=== PATIENT | female | born 1960 | race Caucasian/White ===

== ENCOUNTER 2019-08-20 11:54 | Inpatient (IN) | payer BC ==
--- NOTE | 2019-08-20 12:04 | PDOC ---
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 Patient also reports "feeling cold" and cough productive of yellow phlegm since yesterday. 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 Has had poor po intake today due to low appetite; only had one cup of coffee. Reports non- radiating pleuritic chest pain that she associates with coughing but no shortness of breath. Denies associated nausea, vomiting, or diaphoresis. She is a lifetime non-smoker. Sister had a stroke in her 60s. Has never felt this way before. No hemoptysis, no recent surgical history, no recent immobilization, no hormone use, no history of DVT or PE. No fevers. PCP: Dr. Tay Shearer ROS: Constitutional: no fever, +chills HEENT: no throat pain, no dysphagia Cardiovascular: +chest pain, no palpitations Respiratory: +cough, no shortness of breath Gastrointestinal: no abdominal pain, no nausea Genitourinary: no dysuria, no hematuria Musculoskeletal: no myalgia, no arthralgia Skin: no rash, no itching Neurologic: no headache, +weakness PE: General: Awake, alert, and fully oriented, in no acute distress Head: No signs of trauma Eyes: EOMI, sclera anicteric ENT: Moist mucus membranes Neck: Normal ROM, supple Lungs: Faint crackles at the bases Cardio: Regular rhythm, S1 and S2 present Abdomen: Soft, nontender Extremities: Normal range of motion, Distal pulses present SKIN: Warm, Dry, normal turgor Neurologic: Cranial nerves II through XII grossly intact. Normal speech ED Course/MDM: DDX including but not limited to anemia, metabolic derangement, ACS, PE, UTI, PNA Labs, EKG, CXR PERC is 1 for age>50 WELLS is 0 08/20/19 12:03 EKG: rate 69, QTc 405, NSR, isolated twi in avL (no prior EKGs) 08/20/19 12:39 CXR as read by radiology: "No prior imaging available for comparison. The heart is normal size. Aortic arch is calcified. There is interstitial fluid bilaterally. No significant pleural effusion can be appreciated. Bony thorax appears grossly intact. Postsurgical changes are present within the left shoulder. Impression: Pulmonary congestion as described above, correlate with clinical history." CBC WBC 23.7 K/mm3 (4.0-10.0) H 08/20/19 12:55 RBC 4.24 M/mm3 (3.60-5.2) 08/20/19 12:55 Hgb 13.1 GM/dL (10.7-15.3) 08/20/19 12:55 Hct 38.9 % (32.4-45.2) 08/20/19 12:55 MCV 91.6 fl (80-96) 08/20/19 12:55 MCH 30.8 pg (25.7-33.7) 08/20/19 12:55 MCHC 33.6 g/dl (32.0-36.0) 08/20/19 12:55 RDW 13.7 % (11.6-15.6) 08/20/19 12:55 Plt Count 259 K/MM3 (134-434) 08/20/19 12:55 MPV 8.5 fl (7.5-11.1) 08/20/19 12:55 Absolute Neuts (auto) 22.7 K/mm3 (1.5-8.0) H 08/20/19 12:55 Neutrophils % 96.0 % (42.8-82.8) H 08/20/19 12:55 Neutrophils % (Manual) 72.0 % (42.8-82.8) 08/20/19 12:55 Band Neutrophils % 23.0 % 08/20/19 12:55 Lymphocytes % 1.8 % (8-40) L 08/20/19 12:55 Lymphocytes % (Manual) 0.0 % (8-40) L 08/20/19 12:55 Monocytes % 0.8 % (3.8-10.2) L 08/20/19 12:55 Monocytes % (Manual) 0 % (3.8-10.2) L 08/20/19 12:55 Eosinophils % 1.3 % (0-4.5) 08/20/19 12:55 Eosinophils % (Manual) 2.0 % (0-4.5) 08/20/19 12:55 Basophils % 0.1 % (0-2.0) 08/20/19 12:55 Basophils % (Manual) 0.0 % (0-2.0) 08/20/19 12:55 Myelocytes % (Man) 0 % (0-2) 08/20/19 12:55 Promyelocytes % (Man) 0 % (0-2) 08/20/19 12:55 Blast Cells % (Manual) 0 % (0-0) 08/20/19 12:55 Nucleated RBC % 0 % (0-0) 08/20/19 12:55 Metamyelocytes 2 % (0-2) 08/20/19 12:55 Hypochromia 0 08/20/19 12:55 Platelet Estimate Normal 08/20/19 12:55 Polychromasia 1+ 08/20/19 12:55 Poikilocytosis 1+ 08/20/19 12:55 Anisocytosis 1+ 08/20/19 12:55 Microcytosis 1+ 08/20/19 12:55 Macrocytosis 0 08/20/19 12:55 Leukocytosis CMP Sodium 138 mmol/L (136-145) 08/20/19 12:43 Potassium 3.9 mmol/L (3.5-5.1) 08/20/19 12:43 Chloride 104 mmol/L (98-107) 08/20/19 12:43 Carbon Dioxide 26 mmol/L (21-32) 08/20/19 12:43 Anion Gap 8 MMOL/L (8-16) 08/20/19 12:43 BUN 28.2 mg/dL (7-18) H 08/20/19 12:43 Creatinine 1.2 mg/dL (0.55-1.3) 08/20/19 12:43 Est GFR (CKD-EPI)AfAm 57.29 08/20/19 12:43 Est GFR (CKD-EPI)NonAf 49.43 08/20/19 12:43 Random Glucose 191 mg/dL (74-106) H 08/20/19 12:43 Calcium 8.9 mg/dL (8.5-10.1) 08/20/19 12:43 Total Bilirubin 0.6 mg/dL (0.2-1) 08/20/19 12:43 AST 17 U/L (15-37) 08/20/19 12:43 ALT 23 U/L (13-61) 08/20/19 12:43 Alkaline Phosphatase 79 U/L (45-117) 08/20/19 12:43 Creatine Kinase 60 U/L (26-192) 08/20/19 12:43 Troponin I < 0.02 ng/ml (0.00-0.05) 08/20/19 15:45 B-Natriuretic Peptide 143.8 pg/ml (5-125) H 08/20/19 12:43 Total Protein 7.0 g/dl (6.4-8.2) 08/20/19 12:43 Albumin 3.3 g/dl (3.4-5.0) L 08/20/19 12:43 Electrolytes unremarkable Cr normal Tpn undetectable BNP mildly elevated Decision made to order CTA to further elucidate findings on CXR CTA as read by radiology: "multiplanar imaging was performed following the intravenous administration of nonionic contrast. No prior chest CT exam is available at this facility for direct comparison. There is no discrete pulmonary embolus. In comparison to an abdominal/pelvic CT study of 02/21/2018 which partially imaged lower chest interval development of small bilateral lower lobe infiltrates is noted. There is also interval development of very small right-sided and trace left-sided pleural effusions. 0.5 cm subpleural right upper lobe and 0.4 cm right upper lobe noncalcified nodules are seen ( transaxial images 24, 25). Several 0.2 cm noncalcified nodules are seen within the right middle lobe and right lower lobe. There is no definite cardiac enlargement. No pericardial effusion is seen. The main pulmonary artery diameter appears borderline measuring 2.9 cm. The trachea and central bronchi demonstrate no obvious pathology. There is no aortic aneurysm. The visualized osseous structures demonstrate no obvious acute abnormality. 2.3 cm right adrenal and 1.7 cm left adrenal adenomas are again noted. Impression: No CT evidence of pulmonary embolism. In comparison to a 2018 abdomen/pelvic CT exam interval development of small bilateral lower lobe infiltrates is noted. Note is also made of interval development of very small right-sided and trace left- sided pleural effusions. Several small right lung nodules are seen. Correlation with 3 month follow-up CT is suggested to document stability. The main pulmonary artery diameter is borderline measuring 2.9 cm. Additional evaluation for possible increased pulmonary arterial pressures may be performed. Small stable bilateral adrenal adenomas. Biochemical evaluation is suggested if not previously performed. " Michelle order for inpatient admission for pneumonia Plan for admission 08/20/19 18:[address] Hurt who accepted patient for admisison under Dr. Haley 08/20/19 19:08 Discharge - Discharge Information Problems reviewed: Yes Clinical Impression/Diagnosis: Pneumonia Qualifiers: Pneumonia type: due to unspecified organism Laterality: unspecified laterality Lung location: unspecified part of lung Qualified Code(s): J18.9 - Pneumonia, unspecified organism Condition: Guarded - Admission Yes - Follow up/Referral - Patient Discharge Instructions - Post Discharge Activity
[2019-08-20] MEDS ORDERED: ACETAMINOPHEN 325 MG TABLET (FP) PO ONE (12:27)
[2019-08-20] MEDS ORDERED: SODIUM CHLORIDE 1,000 ML IV STA (12:27)
[2019-08-20] MEDS ORDERED: ACETAMINOPHEN 325 MG TABLET (FP) ONE (12:58)
--- NOTE | 2019-08-20 13:18 | PDOC ---
Attending Attestation - Resident Resident Name: Delmis Kapoor - ED Attending Attestation I have performed the following: I have examined & evaluated the patient, The case was reviewed & discussed with the resident, I agree w/resident's findings & plan, Exceptions are as noted - HPI HPI: 08/20/19 13:11 Ms Pacheco is a 58 yo F h/o DM, HTN, HLD who presents to the ER with a complaint of feeling "weak, dizzy, pale" since this morning. Pt reported having a cough productive of yellow phlegm since yesterday. No recent travel Chest pain which is described as non-radiating pleuritic chest pain that she associates with coughing but no shortness of breath. No nausea, vomiting, diarrhea, diaphoresis. No hemoptysis, no recent surgical history, no recent immobilization, no hormone use, no history of DVT or PE. No fevers. - Physicial Exam PE: 08/20/19 13:18 General: Awake, alert, and fully oriented, in no acute distress Head: No signs of trauma Eyes: EOMI, sclera anicteric ENT: Moist mucus membranes Neck: Normal ROM, supple Lungs: Faint crackles at the bases Cardio: Regular rhythm, S1 and S2 present Abdomen: Soft, nontender Extremities: Normal range of motion, Distal pulses present SKIN: Warm, Dry, normal turgor Neurologic: Cranial nerves II through XII grossly intact. Normal speech - Medical Decision Making 08/20/19 13:21 58 yo F presenting with a complaint of weakness, non specific complaints Twelve-lead EKG was performed and reviewed by me. There is normal sinus rhythm with a normal rate of 69 bpm. The axis is normal. The intervals are normal. There are no ST or T wave abnormalities. Impression: Normal twelve-lead EKG 08/20/19 16:22 Laboratory Tests 08/20/19 08/20/19 08/20/19 12:43 12:55 12:55 WBC 23.7 H Hgb 13.1 Hct 38.9 Plt Count 259 Neutrophils % 96.0 H INR 1.03 BUN 28.2 H Creatinine 1.2 Creatine Kinase 60 Troponin I < 0.02 Urine Blood Urine Nitrite Ur Leukocyte Esterase 08/20/19 13:12 WBC Hgb Hct Plt Count Neutrophils % INR BUN Creatinine Creatine Kinase Troponin I Urine Blood Negative Urine Nitrite Negative Ur Leukocyte Esterase Negative Labs reveal Leukocytosis BANDEMIA Trop neg x 2 CXR with no obvious consolidation, but with pulmonary congestion UA nml No abdominal tenderness 08/20/19 16:[address] chest Will plan to admit 08/20/19 17:15 08/20/19 18:29 CT with bilateral infiltrates Will admit Will give Ceftriaxone and Azithromycin Clinical impression: pneumonia, initial presentation Heart Score/ECG Review - History History: Slightly suspicious - Electrocardiogram EKG: Normal - Age Age: 45-65 - Risk Factors Risk Factors Heart Score: Yes Hx Hypercholesterolemia, Yes Hx Hypertension, Yes Hx Diabetes Based on the list above the patient has:: >/=3 risk factors or Hx atherosclerotic disease - Troponin Troponin: </= normal limit - Score Heart Score - Total: 3
[2019-08-20 13:20] LABS: BASO % 0.1 % (0-2.0); EOS % 1.3 % (0-4.5); HEMATOCRIT 38.9 % (32.4-45.2); HEMOGLOBIN 13.1 GM/dL (10.7-15.3); LYMPH % 1.8 % (8-40); MCH 30.8 pg (25.7-33.7); MCHC 33.6 g/dl (32.0-36.0); MEAN CELL VOLUME 91.6 fl (80-96); MEAN PLT VOLUME 8.5 fl (7.5-11.1); MONO % 0.8 % (3.8-10.2); PLATELET COUNT 259 K/MM3 (134-434); RBC 4.24 M/mm3 (3.60-5.2); RDW 13.7 % (11.6-15.6); WHITE BLOOD COUNT 23.7 K/mm3 (4.0-10.0)
[2019-08-20 13:41] LABS: URINE APPEARANCE CLEAR; URINE BILIRUBIN NEGATIVE (NEGATIVE); URINE COLOR YELLOW; URINE GLUCOSE (UA) NEGATIVE (NEGATIVE); URINE KETONE NEGATIVE (NEGATIVE); URINE LEUK ESTERASE NEGATIVE (NEGATIVE); URINE NITRITE NEGATIVE (NEGATIVE); URINE PROTEIN NEGATIVE (NEGATIVE)
[2019-08-20 13:45] LABS: ALBUMIN 3.3 g/dl (3.4-5.0); ALK PHOS 79 U/L (45-117); ANION GAP 8 MMOL/L (8-16); BILIRUBIN,TOTAL 0.6 mg/dL (0.2-1); BLOOD UREA NITROGEN 28.2 mg/dL (7-18); CALCIUM 8.9 mg/dL (8.5-10.1); CHLORIDE 104 mmol/L (98-107); CO2 26 mmol/L (21-32); CREATININE 1.2 mg/dL (0.55-1.3); GLUCOSE,RANDOM 191 mg/dL (74-106); POTASSIUM 3.9 mmol/L (3.5-5.1); SGOT/AST 17 U/L (15-37); SGPT/ALT 23 U/L (13-61); SODIUM 138 mmol/L (136-145)
[2019-08-20 13:52] LABS: INR 1.03 (0.83-1.09); PROTHROMBIN TIME (PATIENT) 12.1 SEC (9.7-13.0)
[2019-08-20 14:29] LABS: ANISOCYTOSIS 1+; MACROCYTOSIS 0; PLATELET ESTIMATE NORMAL
[2019-08-20] MEDS ORDERED: AZITHROMYCIN 250 MG TABLET PO ONE (15:57)
[2019-08-20] MEDS ORDERED: AZITHROMYCIN 250 MG TABLET ONE (16:23)
[2019-08-20] MEDS ORDERED: CEFTRIAXONE 1,000 MG in DEXTROSE 5%-WATER - 50 ML IVPB ONE (18:25)
[2019-08-20] MEDS ORDERED: CEFTRIAXONE 1 GM/50 ML BAG ONE (18:29)
--- NOTE | 2019-08-20 19:32 | HP ---
CHIEF COMPLAINT: weakness with cough PCP: HISTORY OF PRESENT ILLNESS: 58F w/ pmh of IDDM, HTN, HLD referred to [facility] by workplace-nurse for complaint of fatigue w/a productive cough and yellow-green sputum x2d, intermittent diffuse CP. Has had associated rhinorrhea, chills, sensation that her urine feels warm. Denies history of pneumonia, hospitalization. 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 Denies having sick contacts, history of asthma, recent foreign travel, recent prolonged trips, prolonged immobility, blood clots. ER course was notable for: (1) EKG: NSR, QTc 405 (2) CXR: interstitial fluid b/l suggestive of pulmonary congestion (3) CTA chest: no PE, b/l lower lobe infiltrates, b/l pleural effusions, RML and RLL nodules, 2.3cm Right adrenal adenoma, 1.7cm Left adrenal adenoma (4) ceftriaxone + azithromycin Recent Travel: none PAST MEDICAL HISTORY: IDDM, HTN, HLD PAST SURGICAL HISTORY: Social History: Smoking: distant smoking during teenage years Alcohol: denies Drugs: denies Allergies No Known Allergies Allergy (Verified 08/20/19 12:02) HOME MEDICATIONS: REVIEW OF SYSTEMS CONSTITUTIONAL: positive chills, weakness, malaise Absent: fever, diaphoresis, loss of appetite, weight change HEENT: positive rhinorrhea, nasal congestion Absent: throat pain, throat swelling, difficulty swallowing, mouth swelling, visual changes CARDIOVASCULAR: Absent: chest pain, syncope, palpitations, irregular heart rate, lightheadedness , peripheral edema RESPIRATORY: productive cough with yellow-green sputum Absent: shortness of breath, ddyspnea with exertion, orthopnea, wheezing, stridor, hemoptysis GASTROINTESTINAL: Absent: abdominal pain, abdominal distension, nausea, vomiting, diarrhea, constipation, melena, hematochezia GENITOURINARY: "hot" temperature urine Absent: dysuria, frequency, urgency, hesitancy, hematuria, flank pain, genital pain MUSCULOSKELETAL: Absent: myalgia, arthralgia, joint swelling, back pain, neck pain SKIN: Absent: rash, itching, pallor HEMATOLOGIC/IMMUNOLOGIC: Absent: easy bleeding, easy bruising, lymphadenopathy, frequent infections NEUROLOGIC: headache Absent: focal weakness or paresthesias, dizziness, unsteady gait, seizure, mental status changes, bladder or bowel incontinence PHYSICAL EXAMINATION Vital Signs - 24 hr 08/20/19 08/20/19 12:02 18:03 Temperature 98.4 F Pulse Rate 69 Pulse Rate [ 75 Left] Respiratory 20 18 Rate Blood Pressure 109/64 Blood Pressure 120/74 [Left Arm] O2 Sat by Pulse 95 93 L Oximetry (%) GENERAL: Awake, alert, in no acute distress. HEAD: NC/AT EYES: sclera anicteric, conjunctiva. EARS, NOSE, THROAT: Ears normal, nares patent, oropharynx clear without exudates. Moist mucous membranes. NECK: Normal range of motion, supple without lymphadenopathy. LUNGS: Breath sounds equal, clear to auscultation bilaterally. No wheezes, and no crackles. No accessory muscle use. HEART: Regular rate and rhythm, normal S1 and S2 without murmur, rub or gallop. ABDOMEN: Soft, nontender, not distended, no guarding, no rebound. MUSCULOSKELETAL: Normal range of motion at all joints. UPPER EXTREMITIES: 2+ pulses, warm, well-perfused. No cyanosis. LOWER EXTREMITIES: 2+ pulses, warm, well-perfused. No calf tenderness. No peripheral edema. NEUROLOGICAL: Normal speech. PSYCHIATRIC: Cooperative. Good eye contact. SKIN: Warm, dry Laboratory Results - last 24 hr 08/20/19 08/20/19 08/20/19 12:43 12:43 12:55 WBC 23.7 H RBC 4.24 Hgb 13.1 Hct 38.9 MCV 91.6 MCH 30.8 MCHC 33.6 RDW 13.7 Plt Count 259 MPV 8.5 Absolute Neuts (auto) 22.7 H Neutrophils % 96.0 H Neutrophils % (Manual) 72.0 Band Neutrophils % 23.0 Lymphocytes % 1.8 L Lymphocytes % (Manual) 0.0 L Monocytes % 0.8 L Monocytes % (Manual) 0 L Eosinophils % 1.3 Eosinophils % (Manual) 2.0 Basophils % 0.1 Basophils % (Manual) 0.0 Myelocytes % (Man) 0 Promyelocytes % (Man) 0 Blast Cells % (Manual) 0 Nucleated RBC % 0 Metamyelocytes 2 Hypochromia 0 Platelet Estimate Normal Polychromasia 1+ Poikilocytosis 1+ Anisocytosis 1+ Microcytosis 1+ Macrocytosis 0 PT with INR INR Sodium 138 Potassium 3.9 Chloride 104 Carbon Dioxide 26 Anion Gap 8 BUN 28.2 H Creatinine 1.2 Est GFR (CKD-EPI)AfAm 57.29 Est GFR (CKD-EPI)NonAf 49.43 Random Glucose 191 H Calcium 8.9 Total Bilirubin 0.6 AST 17 ALT 23 Alkaline Phosphatase 79 Creatine Kinase 60 Troponin I < 0.02 B-Natriuretic Peptide 143.8 H Total Protein 7.0 Albumin 3.3 L Urine Color Urine Appearance Urine pH Ur Specific [place] Urine Protein Urine Glucose (UA) Urine Ketones Urine Blood Urine Nitrite Urine Bilirubin Urine Urobilinogen Ur Leukocyte Esterase 08/20/19 08/20/19 08/20/19 12:55 13:12 15:45 WBC RBC Hgb Hct MCV MCH MCHC RDW Plt Count MPV Absolute Neuts (auto) Neutrophils % Neutrophils % (Manual) Band Neutrophils % Lymphocytes % Lymphocytes % (Manual) Monocytes % Monocytes % (Manual) Eosinophils % Eosinophils % (Manual) Basophils % Basophils % (Manual) Myelocytes % (Man) Promyelocytes % (Man) Blast Cells % (Manual) Nucleated RBC % Metamyelocytes Hypochromia Platelet Estimate Polychromasia Poikilocytosis Anisocytosis Microcytosis Macrocytosis PT with INR 12.10 INR 1.03 Sodium Potassium Chloride Carbon Dioxide Anion Gap BUN Creatinine Est GFR (CKD-EPI)AfAm Est GFR (CKD-EPI)NonAf Random Glucose Calcium Total Bilirubin AST ALT Alkaline Phosphatase Creatine Kinase Troponin I < 0.02 B-Natriuretic Peptide Total Protein Albumin Urine Color Yellow Urine Appearance Clear Urine pH 6.0 Ur Specific [place] 1.017 Urine Protein Negative Urine Glucose (UA) Negative Urine Ketones Negative Urine Blood Negative Urine Nitrite Negative Urine Bilirubin Negative Urine Urobilinogen 1.0 Ur Leukocyte Esterase Negative Vital Signs Temp 98.2 F 08/20/19 19:33 Pulse 71 08/20/19 19:33 Resp 20 08/20/19 21:00 BP 137/63 08/20/19 19:33 Pulse Ox 93 L 08/20/19 18:03 Intake & Output 08/20/19 08/20/19 08/21/19 11:59 23:59 11:59 Intake Total 800 Balance 800 Weight 98.43 kg Intake: Oral 800 Other: Voiding Method Toilet Bowel Movement No Height 5 ft 4 in Body Mass Index (BMI) 37.2 Weight Measurement Method Built in [facility] Weight Measurement Method Est/Stated by Patient CXR(08/20/19): The heart is normal size. Aortic arch is calcified. There is interstitial fluid bilaterally. No significant pleural effusion can be appreciated. Bony thorax appears grossly intact. Postsurgical changes are present within the left shoulder. CTA chest: No CT evidence of pulmonary embolism. In comparison to a 2018 abdomen/pelvic CT exam interval development of small bilateral lower lobe infiltrates is noted. Note is also made of interval development of very small right-sided and trace left-sided pleural effusions. Several small right lung nodules are seen. Correlation with 3 month follow-up CT is suggested to document stability. The main pulmonary artery diameter is borderline measuring 2.9 cm. Additional evaluation for possible increased pulmonary arterial pressures may be performed. Small stable bilateral adrenal adenomas. Biochemical evaluation is suggested if not previously performed. ASSESSMENT/PLAN: 58F w/ pmh of IDDM, HTN, HLD presenting with productive cough with complaint of URI-like symptoms #Community-Acquired PNA > Pulse-Oximeter 93-95% on RA > CURB-65 ~1 > CXR(08/20/19): b/l interstitial fluid > CTA Chest(08/20/19): no PE, b/l LL infiltrates w/ trace pleural effusion. b/l adrenal adenomas > WBC 23 w/ 96% neutrophils - fu sputum cx - fu respir viral panel - fu urine legionella Ag - supplemental O2 PRN, goal >92% - ABX: ceftriaxone + azithro #?RICKY 2/2 to sepsis vs ?CKD - obtain PCP records - mIVF - trend Cr #chronic IDDM - med rec needed - BGM ACQHS + ISS #chronic HTN -- likely Essential --normotensive currently - med rec needed - monitor vitals #chronic HLD - med rec needed #b/l adrenal adenomas - monitor for now - consider outpatient w/u(eg. BGM, serum K+, cortisol, ACTH, 24h urinay free corisol, fasting serum cortisol at 0800, serum DHEAS/androstenedion/testosterone /17-hydroxyprogesterone) #FEN - low sodium/sugar diet - NS @125, until improvement of ?RICKY #DVT ppx - SQH Family Medical History Family Hx Cancer: Daughter (chest wall tumors) Family Hx Cardiac Disorders: Sister (IA) Family Hx Diabetes: Grandmother (paternal) Visit type - Emergency Visit Emergency Visit: Yes ED Registration Date: 08/20/19 Care time: The patient presented to the Emergency Department on the above date and was hospitalized for further evaluation of their emergent condition. - New Patient This patient is new to me today: Yes Date on this admission: 08/21/19 - Critical Care Critical Care patient: No ATTENDING PHYSICIAN STATEMENT I saw and evaluated the patient. I reviewed the resident's note and discussed the case with the resident. I agree with the resident's findings and plan as documented. SUBJECTIVE: OBJECTIVE: ASSESSMENT AND PLAN:
[2019-08-20] MEDS ORDERED: CEFTRIAXONE 1 GM in DEXTROSE 5%-WATER - 50 ML IVPB SCH (19:45)
--- NOTE | 2019-08-20 20:53 | PN ---
Teaching Attending Note Name of Resident: Cheng Gee ATTENDING PHYSICIAN STATEMENT I saw and evaluated the patient. I reviewed the resident's note and discussed the case with the resident. I agree with the resident's findings and plan as documented. 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 No recent travels CTA of chest was performed in ER. Denied any urinary symptoms, diarrhea. OBJECTIVE: Last Vital Signs Temp Pulse Resp BP Pulse Ox 98.2 F 71 20 137/63 93 L 08/20/19 19:33 08/20/19 19:33 08/20/19 19:33 08/20/19 19:33 08/20/19 18:03 general- nontoxic appearing heent- no sinus tenderness neck supple chest - bibasilar crackles appreciated abdomen -soft, nt, bs+ ext - no pedal edema Abnormal Lab Results 08/20/19 08/20/19 08/20/19 12:43 12:43 12:55 WBC 23.7 H Absolute Neuts (auto) 22.7 H Neutrophils % 96.0 H Lymphocytes % 1.8 L Lymphocytes % (Manual) 0.0 L Monocytes % 0.8 L Monocytes % (Manual) 0 L BUN 28.2 H Random Glucose 191 H B-Natriuretic Peptide 143.8 H Albumin 3.3 L imaging reviewed cta neg for pe, showed some trace bi- basilar infiltrates ASSESSMENT AND PLAN: #Community acquired pneumonia, leukocytosis w/ neutrophil predominance. Noted to be slightly hypoxic in ER as o2 sat on ra in low 90s. Should r/o underlying influenza. -med/surg -azithromycin -ceftriaxone -sputum culture -urine legionella ag -flu swab -blood cultures x2 -supplemental oxygen via nasal cannula #Uncontrolled DM with severe hyperglycemia. -novolog sliding scale -10 units lantus qhs -tight glucose control -diabetic diet -a1c dvt ppx- heparin sc -
[2019-08-20] MEDS ORDERED: SODIUM CHLORIDE 1,000 ML IV SCH (21:15)
[2019-08-20] MEDS: HEPARIN NA (PORCINE) 5,000 UNITS/ML 1ML VIAL SQ SCH (21:19)
[2019-08-20] MEDS: INSULIN SLIDING SCALE (NOVOLOG) 1 VIAL SQ SCH (21:19)
[2019-08-20 21:38] VITALS: BMI 37.2
[2019-08-20] MEDS: ACETAMINOPHEN 325 MG TABLET (FP) PO PRN (22:25)
[2019-08-21] MEDS: ACETAMINOPHEN 325 MG TABLET (FP) PO PRN ×3 (03:49→20:19)
[2019-08-21] MEDS ORDERED: PNEUMOC 13-VAL CONJ-DIP CRM/PF 0.5 ML DISP.SYRIN IM ONE (06:00)
[2019-08-21] MEDS: HEPARIN NA (PORCINE) 5,000 UNITS/ML 1ML VIAL SQ SCH ×3 (06:17→21:23)
[2019-08-21] MEDS: INSULIN SLIDING SCALE (NOVOLOG) 1 VIAL SQ SCH ×4 (06:20→21:23)
[2019-08-21 07:30] LABS: BLOOD UREA NITROGEN 23.8 mg/dL (7-18); CALCIUM 8.2 mg/dL (8.5-10.1); CREATININE 1.2 mg/dL (0.55-1.3); MAGNESIUM 1.7 mg/dL (1.8-2.4); PHOSPHOROUS 3.2 mg/dL (2.5-4.9); POTASSIUM 3.4 mmol/L (3.5-5.1)
[2019-08-21 07:42] LABS: BASO % 0.1 % (0-2.0); EOS % 3.2 % (0-4.5); HEMATOCRIT 31.8 % (32.4-45.2); HEMOGLOBIN 10.9 GM/dL (10.7-15.3); LYMPH % 4.8 % (8-40); MCH 31.2 pg (25.7-33.7); MCHC 34.2 g/dl (32.0-36.0); MEAN CELL VOLUME 91.3 fl (80-96); MEAN PLT VOLUME 8.8 fl (7.5-11.1); MONO % 1.4 % (3.8-10.2); NEUT % 90.5 % (42.8-82.8); PLATELET COUNT 238 K/MM3 (134-434); RBC 3.48 M/mm3 (3.60-5.2); RDW 13.6 % (11.6-15.6)
[2019-08-21 09:16] LABS: WHITE BLOOD COUNT 30.8 K/mm3 (4.0-10.0)
[2019-08-21] MEDS ORDERED: FLU VACCINE QUAD 60 MCG/0.5 ML (MDV 19-20) IM ONE (10:00)
[2019-08-21] MEDS ORDERED: PNEUMOCOCCAL 23 VACCINE 0.5 ML VIAL IM ONE (10:00)
[2019-08-21] MEDS ORDERED: cefTRIAXone SODIUM 1 GM VIAL ONE (10:03)
[2019-08-21] MEDS ORDERED: DEXTROSE 5%-WATER - 50 ML IVPB ONE (10:03)
[2019-08-21] MEDS: CEFTRIAXONE 1 GM in DEXTROSE 5%-WATER - 50 ML IVPB SCH (10:16)
[2019-08-21] MEDS: AZITHROMYCIN IVPB 250 MG in DEXTROSE 5%-WATER - 250 ML IVPB SCH (11:21)
[2019-08-21 12:17] LABS: ANISOCYTOSIS 1+; MACROCYTOSIS 1+; PLATELET ESTIMATE NORMAL
--- NOTE | 2019-08-21 14:35 | PN ---
Progress Note (short form) - Note Progress Note: PULMMONARY CONSULTATION DICTATED 08/21/19 IMP PNEUMONIA PULMONARY NODULES IDDM HTN PLAN ABX CULTURES URINARY ANTIGENS F/U CHEST CT OUTPATIENT GLYCEMIC CONTROL INHALED BRONCHODILATORS NEEDED DR RAGSDALE Problem List - Problems (1) Pneumonia Code(s): J18.9 - PNEUMONIA, UNSPECIFIED ORGANISM Qualifiers: Pneumonia type: due to unspecified organism Laterality: unspecified laterality Lung location: unspecified part of lung Qualified Code(s): J18.9 - Pneumonia, unspecified organism (2) HTN (hypertension) Code(s): I10 - ESSENTIAL (PRIMARY) HYPERTENSION (3) Pulmonary nodule Code(s): R91.1 - SOLITARY PULMONARY NODULE
[2019-08-21] MEDS ORDERED: POTASSIUM CHLORIDE TABS 20 MEQ TABLET.ER (FP) PO ONE (14:44)
[2019-08-21] MEDS ORDERED: DEXTROMETHORPHAN/PROMETHAZINE 15 MG/6.25 MG/5 ML SYRUP PO PRN (15:00)
[2019-08-21] MEDS ORDERED: guaiFENesin/D-M SUGAR-FREE/ACLHOL-FREE 118 ML BOTTLE PO PRN (15:04)
--- NOTE | 2019-08-21 15:08 | PN ---
Progress Note, Physician History of Present Illness: Patient seen and examined at bedside with her daughter present denies nausea vomiting fever chills chest pain or SOB endorses non productive cough. endorses chest soreness from coughing - Current Medication List Current Medications: Active Medications Acetaminophen (Tylenol -) 650 mg PO Q4H PRN PRN Reason: PAIN LEVEL 6-10 Last Admin: 08/21/19 10:21 Dose: 650 mg Guaifenesin (Diabetic Tussin Dm -) 10 ml PO Q4H PRN PRN Reason: COUGH Heparin Sodium (Porcine) (Heparin -) 5,000 unit SQ TID [facility] Last Admin: 08/21/19 06:17 Dose: 5,000 unit Azithromycin 250 mg/ Dextrose 250 mls @ 250 mls/hr IVPB DAILY [facility] Last Admin: 08/21/19 11:21 Dose: 250 mls/hr Ceftriaxone Sodium 1 gm/ (Dextrose) 50 mls @ 100 mls/hr IVPB DAILY [facility] Last Admin: 08/21/19 10:16 Dose: 100 mls/hr Insulin Aspart (Novolog Vial Sliding Scale -) 1 vial SQ [facility]; Protocol Last Admin: 08/21/19 11:21 Dose: 4 units Insulin Detemir (Levemir Vial) 15 units SQ HS [facility] Magnesium Oxide (Mag-Ox -) 400 mg PO BID [facility] Stop: 08/21/19 22:01 Zolpidem Tartrate (Ambien -) 5 mg PO HS PRN PRN Reason: INSOMNIA - Objective Vital Signs: Vital Signs Temperature 97.8 F 08/21/19 14:00 Pulse Rate 82 08/21/19 14:00 Respiratory Rate 18 08/21/19 14:00 Blood Pressure 143/69 08/21/19 14:00 O2 Sat by Pulse Oximetry (%) 93 L 08/20/19 18:03 Constitutional: Yes: No Distress, Obese, Other (sitting up in bed) Eyes: Yes: Conjunctiva Clear, EOM Intact HENT: Yes: Atraumatic, Normocephalic Neck: Yes: Supple, Trachea Midline Cardiovascular: Yes: Regular Rate and Rhythm Respiratory: Yes: Cough, Other (bilateral crackles). No: Wheezes Gastrointestinal: Yes: Soft, Abdomen, Obese Edema: Yes Edema: LLE: Trace (non pitting), RLE: Trace (non pitting) Neurological: Yes: Alert, Oriented Psychiatric: Yes: Alert, Oriented Labs: CBC, BMP 08/21/19 05:55 08/21/19 05:55 INR, PTT INR 1.03 (0.83-1.09) 08/20/19 12:55 Impression/Plan Impression/Plan: 58F with multiple medical problems including w/ pmh of IDDM, HTN, HLD, morbid obesity presenting with cough and chills found to have pneumonia on CT scan Problem List: Community-Acquired PNA IDDM-uncontrolled HTN HLD Morbid obesity constipation hypokalemia hypomagnesemia doubt RICKY continue ceftriaxone and azithromycin CTA of the chest reviewed no PE but consistent with PNA f/u cultures pain control cough syrup Ambien for insomnia per patient request diabetic tussin for cough urine antigens negative pulm consult appreciated stop IVF -creatinine likely6 at baseline patient states she is on Xultophy 30 units which is a combination of insulin digladec and GLP-1 agonist liraglutide Will start levemir 15 units tonight continue sliding scale insulin HbA1C 8.5% replete electrolytes Visit type - Emergency Visit Emergency Visit: Yes ED Registration Date: 08/20/19 Care time: The patient presented to the Emergency Department on the above date and was hospitalized for further evaluation of their emergent condition. - New Patient This patient is new to me today: Yes Date on this admission: 08/21/19 - Critical Care Critical Care patient: No
[2019-08-21] MEDS: MAGNESIUM OXIDE 400 MG TABLET (FP) PO SCH ×2 (15:14→21:23)
--- NOTE | 2019-08-21 15:25 | CONS ---
DATE OF CONSULTATION: 08/21/2019 REFERRING PHYSICIAN: Juan Sepulveda MD The patient is a 58-year-old female with a past medical history of insulin-dependent diabetes mellitus, hypertension, hyperlipidemia, remote history of tobacco use, admitted to [facility] with a complaint of 1-day history of cough productive of yellow sputum, chills, and no fever. Patient states she was doing well until the day prior to admission, started feeling weakness and dizziness. She also complained of cough, yellow sputum, and felt chills. She denied any nausea or vomiting, although had complaints of nonradiating pleuritic chest pain associated with the coughing. She denied any shortness of breath. 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 She presented to emergency with the above. in the ER she underwent a CTA of the chest which revealed no evidence of pulmonary emboli. It did show evidence of small bilateral lower infiltrates and 0.5-cm subpleural right upper lobe nodule and 0.4-cm right upper lobe noncalcified nodule. Patient has a history of smoking, quit many years ago. There is no history of occupational exposure to chemicals or fumes. She denies any previous history of pneumonia. PAST MEDICAL HISTORY: Again includes insulin-dependent diabetes mellitus, hypertension, hyperlipidemia. REVIEW OF SYSTEMS: Positive for cough. Positive for congestion. Positive chills. No fever. No hemoptysis. No abdominal pain. No lower extremity edema. CURRENT MEDICATIONS: Include Tylenol, Zithromax, ceftriaxone, heparin, normal saline, and NovoLog. PHYSICAL EXAMINATION: General: The patient is a well-developed, well-nourished female, awake, alert, in no acute distress. Vital Signs: She is afebrile. Blood pressure is 143/69. Respiratory rate is 18. O2 saturation is 95% on room air. HEENT: Exam is normocephalic, atraumatic. Neck: Supple. Heart: Regular, S1, S2. Chest: Clear. Abdomen: Soft. Bowel sounds are positive. Extremities: Trace bilateral lower extremity edema. LABORATORY: WBC is 30.8, hemoglobin 10.9, hematocrit 31.8, with a platelet count of 238,000. Chemistries: Glucose 121, BUN 23, creatinine 1.2. Chest CT as noted earlier. IMPRESSION: 1. Bilateral infiltrates, likely community-acquired pneumonia. 2. Diabetes mellitus. 3. Hypertension. 4. Hyperlipidemia. 5. Pulmonary nodules, nonspecific. PLAN: Continue broad-spectrum antibiotics, supplemental O2 as needed, inhaled bronchodilators as needed. Followup chest CT in 3-4 months to document stability of pulmonary nodules,and resolution of infiltrates. Also obtain Legionella urine antigen. MAIRA RAGSDALE M.D. [id number] MTDD
[2019-08-21] MEDS ORDERED: INSULIN (NOVOLOG) ASPART 100 UNITS/ML 10ML VIAL ONE (17:59)
[2019-08-21] MEDS ORDERED: PT OWN MED DRAWER 7, Y5N ONE (18:00)
--- NOTE | 2019-08-21 20:22 | EKG ---
Test Reason : Blood Pressure : / mmHG Vent. Rate : 069 BPM Atrial Rate : 069 BPM P-R Int : 160 ms QRS Dur : 086 ms QT Int : 378 ms P-R-T Axes : 040 060 071 degrees QTc Int : 405 ms NORMAL SINUS RHYTHM POSSIBLE LEFT ATRIAL ENLARGEMENT BORDERLINE ECG NO PREVIOUS ECGS AVAILABLE Confirmed by MD JACK, OMAYRA ([id number]) on 08/21/2019 8:22:30 PM Referred By: Confirmed By:OMAYRA SANTIAGO MD
[2019-08-21] MEDS: INSULIN (LEVEMIR) 100 UNITS/ML UNITS SQ SCH (21:22)
[2019-08-21] MEDS: DOCUSATE SODIUM 100 MG CAPSULE (FP) PO PRN (21:23)
[2019-08-21] MEDS: ZOLPIDEM TARTRATE 5 MG TABLET PO PRN (21:23)
[2019-08-22] MEDS: INSULIN SLIDING SCALE (NOVOLOG) 1 VIAL SQ SCH ×4 (06:02→21:18)
[2019-08-22] MEDS: HEPARIN NA (PORCINE) 5,000 UNITS/ML 1ML VIAL SQ SCH ×3 (06:02→21:19)
[2019-08-22 06:17] LABS: BASO % 0.4 % (0-2.0); EOS % 6.5 % (0-4.5); HEMATOCRIT 31.4 % (32.4-45.2); HEMOGLOBIN 10.7 GM/dL (10.7-15.3); LYMPH % 12.7 % (8-40); MCH 31.1 pg (25.7-33.7); MCHC 34.2 g/dl (32.0-36.0); MEAN CELL VOLUME 90.8 fl (80-96); MEAN PLT VOLUME 8.5 fl (7.5-11.1); MONO % 2.2 % (3.8-10.2); NEUT % 78.2 % (42.8-82.8); PLATELET COUNT 236 K/MM3 (134-434); RBC 3.45 M/mm3 (3.60-5.2); RDW 14.2 % (11.6-15.6); WHITE BLOOD COUNT 17.4 K/mm3 (4.0-10.0)
[2019-08-22] MEDS ORDERED: INSULIN (LEVEMIR) 100 UNITS/ML UNITS SQ ONE (06:35)
[2019-08-22 06:43] LABS: CALCIUM 8.4 mg/dL (8.5-10.1); CREATININE 1.1 mg/dL (0.55-1.3); MAGNESIUM 2.1 mg/dL (1.8-2.4); POTASSIUM 4.1 mmol/L (3.5-5.1)
[2019-08-22] MEDS ORDERED: DEXTROSE 5%-WATER - 50 ML IVPB ONE (09:49)
[2019-08-22] MEDS ORDERED: cefTRIAXone SODIUM 1 GM VIAL ONE (09:49)
[2019-08-22] MEDS: AZITHROMYCIN IVPB 250 MG in DEXTROSE 5%-WATER - 250 ML IVPB SCH (10:26)
[2019-08-22] MEDS: CEFTRIAXONE 1 GM in DEXTROSE 5%-WATER - 50 ML IVPB SCH (10:26)
[2019-08-22] MEDS: ACETAMINOPHEN 325 MG TABLET (FP) PO PRN (10:27)
--- NOTE | 2019-08-22 10:52 | PN ---
Physical Exam: SUBJECTIVE: Patient seen and examined. She reports substernal chest pain with coughing, not present with deep inhalation. She denies shortness of breath, wheezing, abdominal pain, n/v/d. OBJECTIVE: Vital Signs Period Temp Pulse Resp BP Sys/Davis Pulse Ox Last 24 Hr 97.8 F-98.2 F 73-82 18-20 143-155/68-77 GENERAL: The patient is awake, alert, and fully oriented, in no acute distress. HEAD: Normal with no signs of trauma. EYES: PERRL, extraocular movements intact ENT: Ears normal, nares patent, moist mucous membranes. NECK: Trachea midline, full range of motion LUNGS: Breath sounds equal, clear to auscultation bilaterally, no wheezes HEART: Regular rate and rhythm, S1, S2 without murmur, rub or gallop. ABDOMEN: Soft, nontender, nondistended, normoactive bowel sounds EXTREMITIES: Warm, well-perfused, no edema. NEUROLOGICAL: Cranial nerves II through XII grossly intact. Normal speech. PSYCH: Normal mood, normal affect. SKIN: Warm, dry, normal turgor Laboratory Results - last 24 hr 08/21/19 08/21/19 08/21/19 05:55 11:20 15:00 WBC RBC Hgb Hct MCV MCH MCHC RDW Plt Count MPV Absolute Neuts (auto) Neutrophils % Neutrophils % (Manual) 90.1 H Band Neutrophils % 1.0 Lymphocytes % Lymphocytes % (Manual) 3.0 L D Monocytes % Monocytes % (Manual) 1 L D Eosinophils % Eosinophils % (Manual) 3.9 D Basophils % Basophils % (Manual) 0.0 Myelocytes % (Man) 0 Promyelocytes % (Man) 0 Blast Cells % (Manual) 0 Nucleated RBC % Metamyelocytes 0 D Hypochromia 1+ Platelet Estimate Normal Platelet Comment No clumping noted Polychromasia 0 Poikilocytosis 0 Anisocytosis 1+ Microcytosis 1+ Macrocytosis 1+ Sodium Potassium Chloride Carbon Dioxide Anion Gap BUN Creatinine Est GFR (CKD-EPI)AfAm Est GFR (CKD-EPI)NonAf POC Glucometer 206 Random Glucose Calcium Magnesium Influenza A (Rapid) Negative Influenza B (Rapid) Negative 08/21/19 08/21/19 08/22/19 17:41 20:21 05:30 WBC 17.4 H RBC 3.45 L Hgb 10.7 Hct 31.4 L MCV 90.8 MCH 31.1 MCHC 34.2 RDW 14.2 Plt Count 236 MPV 8.5 Absolute Neuts (auto) 13.6 H Neutrophils % 78.2 Neutrophils % (Manual) Band Neutrophils % Lymphocytes % 12.7 D Lymphocytes % (Manual) Monocytes % 2.2 L Monocytes % (Manual) Eosinophils % 6.5 H D Eosinophils % (Manual) Basophils % 0.4 D Basophils % (Manual) Myelocytes % (Man) Promyelocytes % (Man) Blast Cells % (Manual) Nucleated RBC % 0 Metamyelocytes Hypochromia Platelet Estimate Platelet Comment Polychromasia Poikilocytosis Anisocytosis Microcytosis Macrocytosis Sodium Potassium Chloride Carbon Dioxide Anion Gap BUN Creatinine Est GFR (CKD-EPI)AfAm Est GFR (CKD-EPI)NonAf POC Glucometer 201 164 Random Glucose Calcium Magnesium Influenza A (Rapid) Influenza B (Rapid) 08/22/19 08/22/19 05:30 06:01 WBC RBC Hgb Hct MCV MCH MCHC RDW Plt Count MPV Absolute Neuts (auto) Neutrophils % Neutrophils % (Manual) Band Neutrophils % Lymphocytes % Lymphocytes % (Manual) Monocytes % Monocytes % (Manual) Eosinophils % Eosinophils % (Manual) Basophils % Basophils % (Manual) Myelocytes % (Man) Promyelocytes % (Man) Blast Cells % (Manual) Nucleated RBC % Metamyelocytes Hypochromia Platelet Estimate Platelet Comment Polychromasia Poikilocytosis Anisocytosis Microcytosis Macrocytosis Sodium 143 Potassium 4.1 Chloride 110 H Carbon Dioxide 26 Anion Gap 7 L BUN 22.0 H Creatinine 1.1 Est GFR (CKD-EPI)AfAm 63.64 Est GFR (CKD-EPI)NonAf 54.91 POC Glucometer 89 Random Glucose 84 Calcium 8.4 L Magnesium 2.1 Influenza A (Rapid) Influenza B (Rapid) Active Medications Generic Name Dose Route Start Last Admin Trade Name Freq PRN Reason Stop Dose Admin Acetaminophen 650 mg 08/20/19 22:16 08/22/19 10:27 Tylenol - PO 650 mg Q4H PRN Administration PAIN LEVEL 6-10 Docusate Sodium 100 mg 08/21/19 15:07 08/21/19 21:23 Colace - PO 100 mg Q12H PRN Administration CONSTIPATION Guaifenesin 10 ml 08/21/19 15:04 08/21/19 19:00 Diabetic Tussin Dm - PO 10 ml Q4H PRN Administration COUGH Heparin Sodium (Porcine) 5,000 unit 08/20/19 22:00 08/22/19 06:02 Heparin - SQ 5,000 unit TID [facility] Administration Azithromycin 250 mg/ Dextrose 250 mls @ 250 mls/hr 08/21/19 10:00 08/22/19 10 :26 IVPB 250 mls/hr DAILY [facility] Administration Ceftriaxone Sodium 1 gm/ 50 mls @ 100 mls/hr 08/21/19 10:00 08/22/19 10:26 Dextrose IVPB 100 mls/hr DAILY [facility] Administration Insulin Aspart 1 vial 08/20/19 22:00 08/22/19 06:02 Novolog Vial Sliding Scale - SQ Not Given [facility] Protocol Insulin Detemir 15 units 08/21/19 22:00 08/21/19 21:22 Levemir Vial SQ 15 units HS [facility] Administration Zolpidem Tartrate 5 mg 08/21/19 15:00 08/21/19 21:23 Ambien - PO 5 mg HS PRN Administration INSOMNIA ASSESSMENT/PLAN: Ms. Pacheco is a 58 y/o female with IDDM, HTN, HLD, and obesity who presents with productive cough and intermittent chest pain x [address] chest showed bilateral lobe infiltrates and pleural effusions as well as RML and RLL nodules. #bilateral lower lobe community acquired pneumonia CT chest showed bilateral lobe infiltrates and pleural effusions. Leukocytosis but afebrile. She reports improvement in cough and chest pain today. Legionella and flu negative. Imaging also showed several small right lung nodules and main pulmonary artery diameter borderline at 2.9cm. -ceftriaxone day 2 -azithromycin day 2 -sputum culture pending -respiratory panel pending -f/u chest CT in 3 months for nodules -consider pulm f/u to evaluate for increased pulmonary arterial pressures -Pneumovax administered -flu vaccine administered -pulm following- bronchodilators if needed #IDDM Pt on home medications. Daughter is supposed to bring medications to reconcile list. A1C 8.5. -Levemir 15U -SSI -BGM -f/u out pt for elevated A1C #elevated BUN 22 today. Improving. -monitor #bilateral adrenal adenomas Multiple small adenomas present on CT. -f/u out pt for further evaluation #HTN Elevated systolic pressure -consider BB if continues to be elevated and HR allows for it, elevated BUN currently and unsure if RICKY so would not start new TIFFANY-i FEN PO fluids monitor BUN diabetic/sodium diet DVT Ppx heparin Dispo med/surg Visit type - Emergency Visit Emergency Visit: Yes ED Registration Date: 08/20/19 Care time: The patient presented to the Emergency Department on the above date and was hospitalized for further evaluation of their emergent condition. - New Patient This patient is new to me today: Yes Date on this admission: 08/22/19 - Critical Care Critical Care patient: No - Discharge Referral Referred to [facility] Med [facility].C[facility] No ATTENDING PHYSICIAN STATEMENT I saw and evaluated the patient. I reviewed the resident's note and discussed the case with the resident. I agree with the resident's findings and plan as documented. SUBJECTIVE: OBJECTIVE: ASSESSMENT AND PLAN:
--- NOTE | 2019-08-22 11:36 | PN ---
Teaching Attending Note Name of Resident: Holly Crockett ATTENDING PHYSICIAN STATEMENT I saw and evaluated the patient. I reviewed the resident's note and discussed the case with the resident. I agree with the resident's findings and plan as documented. SUBJECTIVE: Patient seen and examined at bedside states she still has cough but it is better slept better with ambien denies nausea vomiting fever chills chest pain or worsened SOB states her productive cough is better sand sputum is now clear OBJECTIVE: Constitutional: Yes: No Distress, Obese, Other (sitting up in bed) Eyes: Yes: Conjunctiva Clear, EOM Intact HENT: Yes: Atraumatic, Normocephalic Neck: Yes: Supple, Trachea Midline Cardiovascular: Yes: Regular Rate and Rhythm Respiratory: CTAB Gastrointestinal: Yes: Soft, Abdomen, Obese Edema: Yes Edema: LLE: Trace (non pitting), RLE: Trace (non pitting) Neurological: Yes: Alert, Oriented Psychiatric: Yes: Alert, Oriented ASSESSMENT AND PLAN: 58F with multiple medical problems including w/ pmh of IDDM, HTN, HLD, morbid obesity presenting with cough and chills found to have pneumonia on CT scan Problem List: Community-Acquired PNA IDDM-uncontrolled HTN HLD Morbid obesity constipation hypokalemia hypomagnesemia doubt RICKY continue ceftriaxone and azithromycin CTA of the chest reviewed no PE but consistent with PNA f/u cultures pain control cough syrup Ambien for insomnia per patient request diabetic tussin for cough urine antigens negative pulm consult appreciated creatinine 1.1 and decreased despite being off fluids likely at baseline patient states she is on Xultophy 30 units which is a combination of insulin digladec and GLP-1 agonist liraglutide continue levemir 15 units tonight continue sliding scale insulin HbA1C 8.5% replete electrolytes
[2019-08-22] MEDS ORDERED: INSULIN (NOVOLOG) ASPART 100 UNITS/ML 10ML VIAL ONE ×2 (11:49→18:02)
--- NOTE | 2019-08-22 13:45 | PN ---
Progress Note, Physician History of Present Illness: pulmonary alert,sitting up in bed,comfortable,+ cough - Current Medication List Current Medications: Active Medications Acetaminophen (Tylenol -) 650 mg PO Q4H PRN PRN Reason: PAIN LEVEL 6-10 Last Admin: 08/22/19 10:27 Dose: 650 mg Docusate Sodium (Colace -) 100 mg PO Q12H PRN PRN Reason: CONSTIPATION Last Admin: 08/21/19 21:23 Dose: 100 mg Guaifenesin/Codeine Phosphate (Robitussin Ac -) 10 ml PO Q8H PRN PRN Reason: COUGH Heparin Sodium (Porcine) (Heparin -) 5,000 unit SQ TID [facility] Last Admin: 08/22/19 06:02 Dose: 5,000 unit Azithromycin 250 mg/ Dextrose 250 mls @ 250 mls/hr IVPB DAILY [facility] Last Admin: 08/22/19 10:26 Dose: 250 mls/hr Ceftriaxone Sodium 1 gm/ (Dextrose) 50 mls @ 100 mls/hr IVPB DAILY [facility] Last Admin: 08/22/19 10:26 Dose: 100 mls/hr Insulin Aspart (Novolog Vial Sliding Scale -) 1 vial SQ [facility]; Protocol Last Admin: 08/22/19 12:28 Dose: Not Given Insulin Detemir (Levemir Vial) 15 units SQ [facility] Last Admin: 08/21/19 21:22 Dose: 15 units Zolpidem Tartrate (Ambien -) 5 mg PO HS PRN PRN Reason: INSOMNIA Last Admin: 08/21/19 21:23 Dose: 5 mg - Objective Vital Signs: Vital Signs Temperature 98.2 F 08/21/19 19:49 Pulse Rate 73 08/21/19 19:49 Respiratory Rate 20 08/21/19 21:00 Blood Pressure 148/77 08/21/19 19:49 O2 Sat by Pulse Oximetry (%) 93 L 08/20/19 18:03 Constitutional: Yes: Well Nourished, Calm Eyes: Yes: WNL HENT: Yes: WNL Neck: Yes: WNL Cardiovascular: Yes: Regular Rate and Rhythm, S1, S2 Respiratory: Yes: Rales (bubasilar crackles) Gastrointestinal: Yes: Normal Bowel Sounds, Soft Extremities: Yes: WNL Edema: No Labs: CBC, BMP 08/22/19 05:30 08/22/19 05:30 INR, PTT INR 1.03 (0.83-1.09) 08/20/19 12:55 Problem List - Problems (1) Pneumonia Code(s): J18.9 - PNEUMONIA, UNSPECIFIED ORGANISM Qualifiers: Pneumonia type: due to unspecified organism Laterality: unspecified laterality Lung location: unspecified part of lung Qualified Code(s): J18.9 - Pneumonia, unspecified organism (2) HTN (hypertension) Code(s): I10 - ESSENTIAL (PRIMARY) HYPERTENSION (3) Pulmonary nodule Code(s): R91.1 - SOLITARY PULMONARY NODULE Assessment/Plan IMP PNEUMONIA PULMONARY NODULES IDDM HTN PLAN ABX F/U CHEST CT OUTPATIENT GLYCEMIC CONTROL INHALED BRONCHODILATORS NEEDED DR RAGSDALE Problem List - Problems (1) Pneumonia Code(s): J18.9 - PNEUMONIA, UNSPECIFIED ORGANISM Qualifiers: Pneumonia type: due to unspecified organism Laterality: unspecified laterality Lung location: unspecified part of lung Qualified Code(s): J18.9 - Pneumonia, unspecified organism (2) HTN (hypertension) Code(s): I10 - ESSENTIAL (PRIMARY) HYPERTENSION (3) Pulmonary nodule Code(s): R91.1 - SOLITARY PULMONARY NODULE
[2019-08-22] MEDS: DOCUSATE SODIUM 100 MG CAPSULE (FP) PO PRN ×2 (15:39→21:19)
[2019-08-22] MEDS: guaiFENesin/CODEINE 10 ML UNIT-DOSE CUPS PO PRN (15:39)
[2019-08-22] MEDS ORDERED: PT OWN MED DRAWER 7, Y5N ONE (18:03)
[2019-08-22] MEDS: INSULIN (LEVEMIR) 100 UNITS/ML UNITS SQ SCH (21:19)
[2019-08-22] MEDS: ZOLPIDEM TARTRATE 5 MG TABLET PO PRN (21:19)
[2019-08-23] MEDS: HEPARIN NA (PORCINE) 5,000 UNITS/ML 1ML VIAL SQ SCH ×2 (06:07→14:54)
[2019-08-23] MEDS: INSULIN SLIDING SCALE (NOVOLOG) 1 VIAL SQ SCH ×2 (06:09→12:40)
[2019-08-23 07:24] LABS: BASO % 0.6 % (0-2.0); EOS % 9.4 % (0-4.5); HEMATOCRIT 33.9 % (32.4-45.2); HEMOGLOBIN 11.5 GM/dL (10.7-15.3); MCH 31.4 pg (25.7-33.7); MEAN CELL VOLUME 92.5 fl (80-96); MEAN PLT VOLUME 8.6 fl (7.5-11.1); MONO % 3.6 % (3.8-10.2); NEUT % 64.4 % (42.8-82.8); PLATELET COUNT 256 K/MM3 (134-434); RBC 3.66 M/mm3 (3.60-5.2); RDW 14.1 % (11.6-15.6); WHITE BLOOD COUNT 10.9 K/mm3 (4.0-10.0)
[2019-08-23 07:54] LABS: CALCIUM 8.8 mg/dL (8.5-10.1); POTASSIUM 4.1 mmol/L (3.5-5.1)
[2019-08-23] MEDS ORDERED: DEXTROSE 5%-WATER - 50 ML IVPB ONE (09:36)
[2019-08-23] MEDS ORDERED: cefTRIAXone SODIUM 1 GM VIAL ONE (09:36)
[2019-08-23] MEDS: guaiFENesin/CODEINE 10 ML UNIT-DOSE CUPS PO PRN (09:38)
[2019-08-23] MEDS: CEFTRIAXONE 1 GM in DEXTROSE 5%-WATER - 50 ML IVPB SCH (09:38)
[2019-08-23] MEDS: DOCUSATE SODIUM 100 MG CAPSULE (FP) PO PRN (09:38)
[2019-08-23] MEDS ORDERED: DOCUSATE SODIUM 100 MG CAPSULE (FP) PO SCH ×2 (09:45→10:00)
[2019-08-23] MEDS: ACETAMINOPHEN 325 MG TABLET (FP) PO PRN (10:03)
--- NOTE | 2019-08-23 10:17 | PN ---
Progress Note (short form) - Note Progress Note: PULMONARY +cough with white sputum. No fevers but still some chills. Vital Signs Period Temp Pulse Resp BP Sys/Davis Pulse Ox Last 24 Hr 98.2 F-98.5 F 65-72 20-20 130-158/80-92 Gen: NAD at rest Heart: RRR Lung: decreased breath sounds at the bases Abd: soft, nontender Ext: no edema CBC, BMP 08/23/19 06:48 08/23/19 06:48 Active Medications Acetaminophen (Tylenol -) 650 mg PO Q4H PRN PRN Reason: PAIN LEVEL 6-10 Last Admin: 08/23/19 10:03 Dose: 650 mg Docusate Sodium (Colace -) 100 mg PO BID [facility] Last Admin: 08/23/19 09:52 Dose: Not Given Guaifenesin/Codeine Phosphate (Robitussin Ac -) 10 ml PO Q8H PRN PRN Reason: COUGH Last Admin: 08/23/19 09:38 Dose: 10 ml Heparin Sodium (Porcine) (Heparin -) 5,000 unit SQ TID [facility] Last Admin: 08/23/19 06:07 Dose: 5,000 unit Azithromycin 250 mg/ Dextrose 250 mls @ 250 mls/hr IVPB DAILY [facility] Last Admin: 08/22/19 10:26 Dose: 250 mls/hr Ceftriaxone Sodium 1 gm/ (Dextrose) 50 mls @ 100 mls/hr IVPB DAILY [facility] Last Admin: 08/23/19 09:38 Dose: 100 mls/hr Insulin Aspart (Novolog Vial Sliding Scale -) 1 vial SQ [facility]; Protocol Last Admin: 08/23/19 06:09 Dose: Not Given Insulin Detemir (Levemir Vial) 15 units SQ HS [facility] Last Admin: 08/22/19 21:19 Dose: 15 units Zolpidem Tartrate (Ambien -) 5 mg PO HS PRN PRN Reason: INSOMNIA Last Admin: 08/22/19 21:19 Dose: 5 mg A/P Pneumonia Lung Nodules HTN DM - continue antibiotics - will need outpt f/u of chest CT to ensure resolution of infiltrates and nodules - DVT prophylaxis - can d/c home from pulmonary standpoint on oral antibiotics
[2019-08-23] MEDS: AZITHROMYCIN IVPB 250 MG in DEXTROSE 5%-WATER - 250 ML IVPB SCH (10:58)
[2019-08-23 13:31] VITALS: BP 180/94; PULSE 74; TEMP 98.7
--- NOTE | 2019-08-23 14:00 | PN ---
Teaching Attending Note Name of Resident: Aby Soliz ATTENDING PHYSICIAN STATEMENT I saw and evaluated the patient. I reviewed the resident's note and discussed the case with the resident. I agree with the resident's findings and plan as documented. SUBJECTIVE: patient still has cough and occasional chills but overall feels better. OBJECTIVE: Vital Signs Period Temp Pulse Resp BP Sys/Davis Pulse Ox Last 24 Hr 98.2 F-98.7 F 65-74 20-20 130-180/80-94 HEART: S1S2, RRR LUNGS: Clear ABDOMEN: Obese, soft, non-tender, non-distended, normal BS EXTREMITIES: No edema Laboratory Results - last 24 hr 08/22/19 08/22/19 08/22/19 11:56 17:15 20:13 WBC RBC Hgb Hct MCV MCH MCHC RDW Plt Count MPV Absolute Neuts (auto) Neutrophils % Lymphocytes % Monocytes % Eosinophils % Basophils % Nucleated RBC % Sodium Potassium Chloride Carbon Dioxide Anion Gap BUN Creatinine Est GFR (CKD-EPI)AfAm Est GFR (CKD-EPI)NonAf POC Glucometer 143 132 187 Random Glucose Calcium 08/23/19 08/23/19 08/23/19 06:08 06:48 06:48 WBC 10.9 H RBC 3.66 Hgb 11.5 Hct 33.9 MCV 92.5 MCH 31.4 MCHC 34.0 RDW 14.1 Plt Count 256 MPV 8.6 Absolute Neuts (auto) 7.0 Neutrophils % 64.4 Lymphocytes % 22.0 D Monocytes % 3.6 L Eosinophils % 9.4 H Basophils % 0.6 Nucleated RBC % 0 Sodium 142 Potassium 4.1 Chloride 109 H Carbon Dioxide 26 Anion Gap 6 L BUN 21.0 H Creatinine 1.0 Est GFR (CKD-EPI)AfAm 71.41 Est GFR (CKD-EPI)NonAf 61.62 POC Glucometer 79 Random Glucose 70 L Calcium 8.8 08/23/19 12:39 WBC RBC Hgb Hct MCV MCH MCHC RDW Plt Count MPV Absolute Neuts (auto) Neutrophils % Lymphocytes % Monocytes % Eosinophils % Basophils % Nucleated RBC % Sodium Potassium Chloride Carbon Dioxide Anion Gap BUN Creatinine Est GFR (CKD-EPI)AfAm Est GFR (CKD-EPI)NonAf POC Glucometer 124 Random Glucose Calcium Current Medications Generic Name Dose Route Start Last Admin Trade Name Freq PRN Reason Stop Dose Admin Acetaminophen 650 mg 10/18/19 22:16 08/23/19 10:03 Tylenol - PO 650 mg Q4H PRN Administration PAIN LEVEL 6-10 Docusate Sodium 100 mg 08/23/19 10:00 08/23/19 09:52 Colace - PO Not Given BID [facility] Guaifenesin/Codeine Phosphate 10 ml 08/22/19 12:03 08/23/19 09:38 Robitussin Ac - PO 10 ml Q8H PRN Administration COUGH Heparin Sodium (Porcine) 5,000 unit 08/20/19 22:00 08/23/19 06:07 Heparin - SQ 5,000 unit TID [facility] Administration Azithromycin 250 mg/ Dextrose 250 mls @ 250 mls/hr 08/21/19 10:00 08/23/19 10 :58 IVPB 250 mls/hr DAILY [facility] Administration Ceftriaxone Sodium 1 gm/ 50 mls @ 100 mls/hr 08/21/19 10:00 08/23/19 09:38 Dextrose IVPB 100 mls/hr DAILY [facility] Administration Insulin Aspart 1 vial 08/20/19 22:00 08/23/19 12:40 Novolog Vial Sliding Scale - SQ Not Given [facility] Protocol Insulin Detemir 15 units 08/21/19 22:00 08/22/19 21:19 Levemir Vial SQ 15 units HS [facility] Administration Zolpidem Tartrate 5 mg 08/21/19 15:00 08/22/19 21:19 Ambien - PO 5 mg HS PRN Administration INSOMNIA ASSESSMENT AND PLAN: This is a 58 year old woman with a history of HTN, hyperlipidemia, type 2 DM, obesity who presented to the ED with cough and chills. 1. Pneumonia - Afebrile, WBC improving - On ceftriaxone, azithromycin - Discharge on Keflex 2. Right lung nodules - Outpatietnn pulmonary follow-up - Follow-up CT in 3 months 3. Bilateral adrenal adenomas - Stable 4 HTN - Continue Cardizem CD, Coreg 5. Hyperlipidemia - Continue Lipitor 6. Type 2 DM - Continue Levemir, Novolog sliding scale - Resume Xultophy at discharge 7. Hypokalemia - Improved 8. Hypomagnesemia - Improved 9. Constipation - Continue Colace 10. Obesity with BMI 37.2
--- NOTE | 2019-08-23 14:08 | DS ---
Physical Exam: SUBJECTIVE: Patient seen and examined. No acute events overnight. OBJECTIVE: Vital Signs Period Temp Pulse Resp BP Sys/Davis Pulse Ox Last 24 Hr 98.2 F-98.7 F 65-74 20-20 130-180/80-94 PHYSICAL EXAM GENERAL: The patient is awake, alert, and fully oriented, in no acute distress. HEAD: Normal with no signs of trauma. EYES: PERRL, extraocular movements intact ENT: Ears normal, nares patent, moist mucous membranes. NECK: Trachea midline, full range of motion LUNGS: Breath sounds equal, clear to auscultation bilaterally, no wheezes HEART: Regular rate and rhythm, S1, S2 without murmur, rub or gallop. ABDOMEN: Soft, nontender, nondistended, normoactive bowel sounds EXTREMITIES: Warm, well-perfused, no edema. NEUROLOGICAL: Cranial nerves II through XII grossly intact. Normal speech. PSYCH: Normal mood, normal affect. SKIN: Warm, dry, normal turgor LABS Laboratory Results - last 24 hr 08/22/19 08/22/19 08/22/19 11:56 17:15 20:13 WBC RBC Hgb Hct MCV MCH MCHC RDW Plt Count MPV Absolute Neuts (auto) Neutrophils % Lymphocytes % Monocytes % Eosinophils % Basophils % Nucleated RBC % Sodium Potassium Chloride Carbon Dioxide Anion Gap BUN Creatinine Est GFR (CKD-EPI)AfAm Est GFR (CKD-EPI)NonAf POC Glucometer 143 132 187 Random Glucose Calcium 08/23/19 08/23/19 08/23/19 06:08 06:48 06:48 WBC 10.9 H RBC 3.66 Hgb 11.5 Hct 33.9 MCV 92.5 MCH 31.4 MCHC 34.0 RDW 14.1 Plt Count 256 MPV 8.6 Absolute Neuts (auto) 7.0 Neutrophils % 64.4 Lymphocytes % 22.0 D Monocytes % 3.6 L Eosinophils % 9.4 H Basophils % 0.6 Nucleated RBC % 0 Sodium 142 Potassium 4.1 Chloride 109 H Carbon Dioxide 26 Anion Gap 6 L BUN 21.0 H Creatinine 1.0 Est GFR (CKD-EPI)AfAm 71.41 Est GFR (CKD-EPI)NonAf 61.62 POC Glucometer 79 Random Glucose 70 L Calcium 8.8 08/23/19 12:39 WBC RBC Hgb Hct MCV MCH MCHC RDW Plt Count MPV Absolute Neuts (auto) Neutrophils % Lymphocytes % Monocytes % Eosinophils % Basophils % Nucleated RBC % Sodium Potassium Chloride Carbon Dioxide Anion Gap BUN Creatinine Est GFR (CKD-EPI)AfAm Est GFR (CKD-EPI)NonAf POC Glucometer 124 Random Glucose Calcium HOSPITAL COURSE: Date of Admission:08/20/19 Ms. Pacheco is a 58 y/o female with IDDM, HTN, HLD, and obesity who presents with productive cough and intermittent chest pain x3 days. On admission, pt was afebrile but had leukocytosis. CXR showed interstitial fluid BL, suggestive of pulmonary congestion. CT chest showed bilateral lobe infiltrates and pleural effusions as well as RML and RLL nodules. Pt was treated with ceftriaxone and azithromycin for 3 days and symptoms improved. She has remained afebrile and lab values have normalized since admission. Her cough and chest pain have resolved. Pt's vitals are stable and she is clinically stable to be discharged to complete her antibiotic treatment at home. She is being discharged with 500mg Keflex BID for 4 more days and told to return to the emergency department if any symptoms persist. Pt was also given a referral to f/u with pulmonology as an outpatient and to receive CT imaging in 3 months to monitor her lung nodules. CXR: BL interstitial fluid CT chest: BL lobe infiltrates and pleural effusions, RML and RLL nodules. Date of Discharge: 08/23/19 Minutes to complete discharge: 45 Discharge Summary Problems reviewed: Yes Reason For Visit: PNEUMONIA Current Active Problems HTN (hypertension) (Acute) Pneumonia (Acute) Pulmonary nodule (Acute) Condition: Improved - Instructions Diet, Activity, Other Instructions: You were admitted to the hospital for pneumonia. We treated your pneumonia with antibiotics and your symptoms and blood work improved. You should continue your antibiotics at home. Take 500mg Keflex twice a day (one pill in the morning and one pill at nighttime) for 4 more days. During your admission, a CT of your lungs revealed several small spots on your right lung. You should follow up with additional CT imaging in 3 months to monitor these nodules. You should also follow up with a ent consultant, Dr. Nicolas. We provided you with a referral. Continue all home medications as prescribed. You should follow up with your primary care provider in one week. Please return to the emergency department if you experience worsening of breathing, chest pain, fevers, cough, or any additional symptoms. Referrals: Tommy Nicolas MD [Staff Physician] - Manfred Cross [Non Staff, Medical] - Disposition: HOME - Home Medications Comprehensive Discharge Medication List: Ambulatory Orders Alprazolam [Xanax] 0.25 mg PO DAILY 08/23/19 Atorvastatin Ca [Lipitor] 10 mg PO DAILY 08/23/19 Carvedilol 25 mg PO BID 08/23/19 Cephalexin [Keflex] 500 mg PO BID #8 capsule 08/23/19 Citalopram Hydrobromide [Citalopram HBr] 40 mg PO BID 08/23/19 Dextromethorphan Polistirex [Robitussin ER] 30 mg PO DAILY PRN #1 nando.er.12h Diltiazem HCl [Diltiazem 24Hr Cd] 180 mg PO DAILY 08/23/19 Docusate Sodium [Colace -] 100 mg PO BID #30 capsule 08/23/19 Losartan/Hydrochlorothiazide [Losartan-Hctz 100-25 mg Tab] 1 tablet PO DAILY This patient is new to me today: Yes Date on this admission: 08/23/19 Emergency Visit: No Critical Care patient: No - Discharge Referral Referred to [facility] No ATTENDING PHYSICIAN STATEMENT I saw and evaluated the patient. I reviewed the resident's note and discussed the case with the resident. I agree with the resident's findings and plan as documented. SUBJECTIVE: OBJECTIVE: ASSESSMENT AND PLAN:
== END 2019-08-23 15:05 | disposition home or self-care (01) | DRG 195 ==
LOC: JER 11:54 → JERBED 18:36 → J8W 19:45
PROVIDERS: ADMIT Internal Medicine; ATTEND Internal Medicine
DX: J18.9 Pneumonia, unspecified organism (principal); I10 Essential (primary) hypertension; E78.5 Hyperlipidemia, unspecified; R91.1 Solitary pulmonary nodule; Z68.37 Body mass index [BMI] 37.0-37.9, adult; E87.6 Hypokalemia; E83.42 Hypomagnesemia; K59.00 Constipation, unspecified; E11.65 Type 2 diabetes mellitus with hyperglycemia; E66.01 Morbid (severe) obesity due to excess calories; D72.829 Elevated white blood cell count, unspecified
CPT/HCPCS: 36415; 71046-TC-FY; 71275-TC; 80048; 80053; 81003; 82550; 82962; 83036; 83735; 83880; 84100; 84484; 85025; 85610; 87070; 87086; 87205; 87633; 87804; 87899; 93005; 93010; 99283-25; J1644; J7030

== ENCOUNTER 2019-10-19 09:50 | Emergency (ER) | payer OTHER, BC ==
[2019-10-19 10:02] VITALS: TEMP 98.1; BMI 36.2
--- NOTE | 2019-10-19 10:49 | PDOC ---
History of Present Illness - General Chief Complaint: Injury Stated Complaint: FALL Time Seen by Provider: 10/19/19 10:04 History Source: Patient Exam Limitations: Clinical Condition - History of Present Illness Initial Comments: 10/19/19 10:45 Patient with no significant past medical history presented for evaluation of bilateral elbow pain, posterior neck pain, right knee pain and headache status post slip and fall on ice an hour prior to arrival hitting head while getting off a bus. 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 Patient reported bump to right side of scalp. Denies dizziness, blurry vision, change in vision, nausea or vomiting. Patient report history of right knee replacement a year ago. Report moderate pain all over her body especially in the joints. Denies syncopal episode. Denies anticoagulant therapy. Patient did not take anything for pain Occurred: reports: just prior to arrival Pain Location: reports: head, lower extremity (right knee pain), neck, upper extremity (b/l elbow pain) Method of Injury: Yes: fall Past History - Past Medical History Allergies/Adverse Reactions: Allergies Allergy/AdvReac Type Severity Reaction Status Date / Time No Known Allergies Allergy Verified 10/19/19 10:00 Home Medications: Ambulatory Orders Alprazolam [Xanax] 0.25 mg PO DAILY 08/23/19 Atorvastatin Ca [Lipitor] 10 mg PO DAILY 08/23/19 Carvedilol 25 mg PO BID 08/23/19 Citalopram Hydrobromide [Citalopram HBr] 40 mg PO BID 08/23/19 Dextromethorphan Polistirex [Robitussin ER] 30 mg PO DAILY PRN #1 nando.er.12h Diltiazem HCl [Diltiazem 24Hr Cd] 180 mg PO DAILY 08/23/19 Docusate Sodium [Colace -] 100 mg PO BID #30 capsule 08/23/19 Losartan/Hydrochlorothiazide [Losartan-Hctz 100-25 mg Tab] 1 tablet PO DAILY Ibuprofen 800 mg PO Q8H PRN #20 tablet 10/19/19 Methocarbamol [Robaxin -] 500 mg PO BID PRN #14 tablet 10/19/19 COPD: No Diabetes: Yes HTN: Yes Hypercholesterolemia: Yes - Immunization History Immunization Up to Date: Yes - Psycho Social/Smoking Cessation Hx Smoking History: Never smoked Have you smoked in the past 12 months: No Hx Alcohol Use: No Drug/Substance Use Hx: No Hx Substance Use Treatment: No Review of Systems - Review of Systems Able to Perform ROS?: Yes Is the patient limited Slovak proficient: No Constitutional: No: Chills, Fever HEENTM: No: Symptoms Reported, See HPI, Eye Pain, Blurred Vision, Tearing, Recent change in vision, Double Vision, Cataracts, Ear Pain, Ocular Prothesis, Ear Discharge, Nose Pain, Nose Congestion, Tinnitus, Nose Bleeding, Hearing Loss , Throat Pain, Throat Swelling, Mouth Pain, Dental Problems, Difficulty Swallowing, Mouth Swelling, Other Respiratory: No: Symptoms reported, See HPI, Cough, Orthopnea, Shortness of Breath, SOB with Exertion, SOB at Rest, Stridor, Wheezing, Productive cough, Hemoptysis, Other Cardiac (ROS): No: Symptoms Reported, See HPI, Chest Pain, Edema, Irregular Heart Rate, Lightheadedness, Palpitations, Syncope, Chest Tightness, Other ABD/GI: No: Symptoms Reported, Nausea, Vomiting Musculoskeletal: Yes: Symptoms Reported, See HPI, Back Pain, Joint Pain (right knee pain), Muscle Pain (posterior b/l elbow pain), Neck Pain (posterior neck pain). No: Joint Swelling, Muscle Weakness Integumentary: No: Symptoms Reported, See HPI, Bruising, Other Neurological: Yes: Symptoms reported, See HPI, Headache. No: Pre-Existing Deficit, Weakness, Unsteady Gait, Ataxia, Dizziness All Other Systems: Reviewed and Negative *Physical Exam - Vital Signs Last Vital Signs Temp Pulse Resp BP Pulse Ox 98.1 F 61 18 129/72 100 10/19/19 10:01 10/19/19 10:01 10/19/19 10:01 10/19/19 10:01 10/19/19 10:01 - Physical Exam 10/19/19 10:50 GENERAL: Well developed, well nourished. Awake and alert in mild acute distress. CARDIOVASCULAR: Regular rate and rhythm. No murmurs, rubs, or gallops. PULMONARY: No evidence of respiratory distress. Lungs clear to auscultation bilaterally. No wheezing, rales or rhonchi. MUSCULOSKELETAL : moderate tenderness of bilateral elbow over olecranon, bilateral paracervical muscles cervical spinal C2-C7 with no midline tenderness. Moderate tenderness to lower lumbar spine. Small 1 cm bump to right side of scalp. SKIN: Warm and dry. Normal capillary refill. No rashes. No bruising or ecchymosis NEUROLOGICAL: Alert, awake, appropriate. No motor deficits in the lower extremities. Gait is normal without ataxia.Normal neuro exam. Pupils equal referred to to light bilateral. PSYCHIATRIC: Cooperative. Good eye contact. Appropriate mood and affect. General Appearance: Yes: Nourished, Appropriately Dressed. No: Apparent Distress ED Treatment Course - RADIOLOGY Radiology Studies Ordered: Category Date Time Status HEAD CT WITHOUT CONTRAST [CT] Stat CT Scan 10/19/19 10:15 Ordered ELBOW-LEFT [RAD] Stat Radiology 10/19/19 10:15 Ordered ELBOW-RIGHT [RAD] Stat Radiology 10/19/19 10:15 Ordered KNEE 3 POS-RIGHT [RAD] Stat Radiology 10/19/19 10:17 Ordered SPINE-CERVICAL [RAD] Stat Radiology 10/19/19 10:15 Ordered SPINE-LUMBAR SACRAL [RAD] Stat Radiology 10/19/19 10:15 Ordered Medical Decision Making - Medical Decision Making 10/19/19 10:47 Patient with no significant past medical history presented for evaluation of bilateral elbow pain, posterior neck pain, right knee pain and headache status post slip and fall on ice an hour prior to arrival hitting head while getting off a bus. 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 Patient reported bump to right side of scalp. Denies dizziness, blurry vision, change in vision, nausea or vomiting. Patient report history of right knee replacement a year ago. Report moderate pain all over her body especially in the joints. Denies syncopal episode. Denies anticoagulant therapy. Patient did not take anything for pain Exam was significant for moderate tenderness of bilateral elbow over olecranon, bilateral paracervical muscles cervical spinal C2-C7 with no midline tenderness. Moderate tenderness to lower lumbar spine. Small 1 cm bump to right side of scalp. Normal neuro exam. Pupils equal referred to to light bilateral. Patient symptoms likely elbow contusion with neck and back strain and head contusion. X-ray of bilateral elbow, lumbosacral and cervical spine ordered to rule out acute pathology. Head CT without contrast ordered to rule out acute intracranial pathology. 10/19/19 11:18 X-ray of bilateral elbow, lumbosacral and cervical spine shows no acute fracture or dislocation. Patient symptoms likely contusion with back sprain. Toradol 60 mg IM and Robaxin 500 mg p.o. ordered for pain. Head CT shows no acute intracranial pathology. patient stable for discharge on ibuprofen and Robaxin as needed for pain and spasm with strict follow-up Discharge - Discharge Information Problems reviewed: Yes Clinical Impression/Diagnosis: Head contusion Qualifiers: Encounter type: initial encounter Contusion of head detail: scalp Qualified Code(s): S00.03XA - Contusion of scalp, initial encounter Elbow contusion Qualifiers: Encounter type: initial encounter Laterality: unspecified laterality Qualified Code(s): S50.00XA - Contusion of unspecified elbow, initial encounter Whiplash injury to neck Qualifiers: Encounter type: initial encounter Qualified Code(s): S13.4XXA - Sprain of ligaments of cervical spine, initial encounter Lumbago without sciatica Qualifiers: Chronicity: acute Back pain laterality: bilateral Qualified Code(s): M54.5 - Low back pain Condition: Stable Disposition: HOME - Admission No - Additional Discharge Information Prescriptions: Ibuprofen 800 mg PO Q8H PRN #20 tablet PRN Reason: pain Methocarbamol [Robaxin -] 500 mg PO BID PRN #14 tablet PRN Reason: Back Pain - Follow up/Referral - Patient Discharge Instructions Patient Printed Discharge Instructions: DI for Contusion, DI for Closed Head Injury Additional Instructions: X-rays done today shows no acute fracture or dislocation. Head CAT scan done 2 is normal and shows no intracranial bleeding. His symptoms likely back strain with elbow contusion. Take prescribed Motrin as needed for pain and apply hot compress to back 2-3 times a day as needed for pain. Rest for the next 24 hours with no strenuous activity. Come back to the emergency room if worsening headache, blurry vision or change in vision with nausea and vomiting. - Post Discharge Activity Work/Back to School Note: Back to Work
[2019-10-19] MEDS ORDERED: METHOCARBAMOL 500 MG TABLET PO ONE (11:12)
[2019-10-19] MEDS ORDERED: KETOROLAC TROMETHAMINE 60 MG/2 ML VIAL IM ONE (11:12)
[2019-10-19] MEDS ORDERED: KETOROLAC TROMETHAMINE 60 MG/2 ML VIAL ONE (11:17)
[2019-10-19] MEDS ORDERED: METHOCARBAMOL 500 MG TABLET ONE (11:17)
[2019-10-19 11:42] VITALS: BP 128/68; PULSE 64
== END 2019-10-19 11:41 | disposition home or self-care (01) ==
LOC: JERFT 09:50
PROC: 3E0233Z Introduction of Anti-inflammatory into Muscle, Percutaneous Approach (ICD-10-PCS; principal; 2019-10-19)
DX: S50.00XA Contusion of unspecified elbow, initial encounter (principal); S00.03XA Contusion of scalp, initial encounter; S13.4XXA Sprain of ligaments of cervical spine, initial encounter; M54.5 Low back pain; I10 Essential (primary) hypertension; E78.00 Pure hypercholesterolemia, unspecified
CPT/HCPCS: 70450-TC; 72050-TC-FY; 72100-TC-FY; 73070-TC-LT-FY; 73070-TC-RT-FY; 73562-TC-RT-FY; 99281-25

== ENCOUNTER 2022-04-22 12:10 | Inpatient (IN) | payer BC, OTHER ==
[2022-04-22 12:23] VITALS: BMI 31.7
[2022-04-22] MEDS ORDERED: morphine CARPU-JECT 8 MG/1 ML DISP.SYRIN IVPUSH ONE (12:29)
[2022-04-22] MEDS ORDERED: morphine SULFATE 4 MG/ML VIAL ONE ×4 (12:38→22:32)
[2022-04-22 13:02] LABS: BASO % 0.4 % (0-2.0); EOS % 1.9 % (0-4.5); HEMOGLOBIN 13.7 GM/dL (10.7-15.3); LYMPH % 15.4 % (8-40); MCH 31.7 pg (25.7-33.7); MCHC 34.2 g/dl (32.0-36.0); MEAN CELL VOLUME 92.7 fl (80-96); MEAN PLT VOLUME 8.8 fl (7.5-11.1); MONO % 4.2 % (3.8-10.2); NEUT % 78.1 % (42.8-82.8); PLATELET COUNT 215 10^3/uL (134-434); RBC 4.32 M/mm3 (3.60-5.2); RDW 13.3 % (11.6-15.6); WHITE BLOOD COUNT 8.5 K/mm3 (4.0-10.0)
[2022-04-22 13:07] LABS: INR 1.05 (0.83-1.09); PROTHROMBIN TIME (PATIENT) 12.1 SEC (9.7-13.0)
[2022-04-22 13:10] LABS: ACTIVATED PTT 24.9 SECONDS (25.2-36.5)
[2022-04-22 13:14] LABS: ALBUMIN 3.5 g/dl (3.4-5.0); BLOOD UREA NITROGEN 36.5 mg/dL (7-18)
[2022-04-22 13:17] LABS: CREATININE 1.4 mg/dL (0.55-1.3)
[2022-04-22 13:19] LABS: BILIRUBIN,TOTAL 0.7 mg/dL (0.2-1); TOT PROT 7.2 g/dl (6.4-8.2)
[2022-04-22] MEDS ORDERED: morphine CARPU-JECT 4 MG/1 ML DISP.SYRIN IVPUSH ONE ×2 (13:35→15:44)
[2022-04-22 16:05] LABS: URINE APPEARANCE CLEAR; URINE BILIRUBIN NEGATIVE (NEGATIVE); URINE COLOR YELLOW; URINE GLUCOSE (UA) NEGATIVE (NEGATIVE); URINE KETONE NEGATIVE (NEGATIVE); URINE LEUK ESTERASE NEGATIVE (NEGATIVE); URINE NITRITE NEGATIVE (NEGATIVE); URINE PROTEIN TRACE (NEGATIVE); URINE UROBILINOGEN 0.2 mg/dL (0.2-1.0)
[2022-04-22] MEDS ORDERED: SODIUM CHLORIDE 1,000 ML IV SCH (17:00)
[2022-04-22] MEDS ORDERED: ENOXAPARIN NA (PORCINE) 40 MG/0.4 ML DISP.SYRIN SQ ONE (18:04)
[2022-04-22] MEDS: ENOXAPARIN NA (PORCINE) 40 MG/0.4 ML DISP.SYRIN SQ SCH (18:27)
[2022-04-22] MEDS ORDERED: CARVEDILOL 25 MG TABLET (FP) ONE (21:44)
[2022-04-22] MEDS ORDERED: ACETAMINOPHEN 1000 MG/100 ML BAG IVPB PRN (21:50)
[2022-04-22] MEDS ORDERED: CITALOPRAM HYDROBROMIDE 40 MG PO SCH (22:00)
[2022-04-22] MEDS: CARVEDILOL 25 MG TABLET (FP) PO SCH (22:00)
[2022-04-22] MEDS: morphine SULFATE 4 MG/ML VIAL IVPUSH PRN (23:37)
[2022-04-23] MEDS ORDERED: ACETAMINOPHEN INJECTION 100 ML IVPB ONE ×2 (07:49→15:30)
[2022-04-23 08:58] LABS: BASO % 0.7 % (0-2.0); EOS % 2.2 % (0-4.5); HEMATOCRIT 38.5 % (32.4-45.2); HEMOGLOBIN 13.2 GM/dL (10.7-15.3); LYMPH % 20.7 % (8-40); MCH 31.5 pg (25.7-33.7); MCHC 34.2 g/dl (32.0-36.0); MEAN CELL VOLUME 92.1 fl (80-96); MEAN PLT VOLUME 9.6 fl (7.5-11.1); MONO % 8.7 % (3.8-10.2); NEUT % 67.7 % (42.8-82.8); PLATELET COUNT 205 10^3/uL (134-434); RBC 4.18 M/mm3 (3.60-5.2); RDW 13.2 % (11.6-15.6); WHITE BLOOD COUNT 7.9 K/mm3 (4.0-10.0)
[2022-04-23 09:49] LABS: ALBUMIN 3.1 g/dl (3.4-5.0); BLOOD UREA NITROGEN 29.8 mg/dL (7-18); CALCIUM 8.9 mg/dL (8.5-10.1)
[2022-04-23 09:50] LABS: MAGNESIUM 1.9 mg/dL (1.8-2.4)
[2022-04-23 09:52] LABS: CREATININE 1.1 mg/dL (0.55-1.3)
[2022-04-23 09:53] LABS: BILIRUBIN,TOTAL 0.6 mg/dL (0.2-1); TOT PROT 6.6 g/dl (6.4-8.2)
[2022-04-23] MEDS ORDERED: ENOXAPARIN NA (PORCINE) 40 MG/0.4 ML DISP.SYRIN SQ ONE (10:38)
[2022-04-23] MEDS ORDERED: CARVEDILOL 25 MG TABLET (FP) ONE (10:38)
[2022-04-23] MEDS: ENOXAPARIN NA (PORCINE) 40 MG/0.4 ML DISP.SYRIN SQ SCH (10:45)
[2022-04-23] MEDS: CARVEDILOL 25 MG TABLET (FP) PO SCH ×2 (10:50→21:29)
[2022-04-23] MEDS ORDERED: SODIUM CHLORIDE 0.45% 1,000 ML IV SCH (13:30)
[2022-04-23] MEDS: morphine SULFATE 4 MG/ML VIAL IVPUSH PRN (20:07)
[2022-04-23] MEDS ORDERED: ATORVASTATIN CA 10 MG TABLET (FP) PO SCH (22:00)
[2022-04-24] MEDS: morphine SULFATE 4 MG/ML VIAL IVPUSH PRN (05:54)
[2022-04-24 07:35] LABS: BLOOD UREA NITROGEN 21.6 mg/dL (7-18); CALCIUM 8.7 mg/dL (8.5-10.1)
[2022-04-24] MEDS ORDERED: MIDAZOLAM HCL 2 MG/2 ML SINGLE DOSE VIAL ONE ×2 (09:30)
[2022-04-24] MEDS ORDERED: ROPIVACAINE HCL 0.5% 30ML VIAL ONE (09:31)
[2022-04-24] MEDS ORDERED: PROPOFOL 20 ML ONE (10:08)
[2022-04-24] MEDS ORDERED: LIDOCAINE HCL/PF 2% SDV 5ML VIAL ONE (10:09)
[2022-04-24] MEDS ORDERED: ceFAZolin SODIUM 1 GM VIAL ONE (10:14)
[2022-04-24] MEDS ORDERED: ceFAZolin SODIUM 1 GM VIAL IVPB ONE (10:15)
[2022-04-24] MEDS ORDERED: DEXAMETHASONE SOD PHOSPHATE 4 MG/1 ML VIAL ONE (10:37)
[2022-04-24] MEDS ORDERED: ONDANSETRON 4 MG/2 ML VIAL ONE (10:37)
[2022-04-24] MEDS ORDERED: KETOROLAC TROMETHAMINE 30 MG/1 ML VIAL ONE (11:26)
[2022-04-24] MEDS ORDERED: oxyCODONE HCL 5 MG TABLET PO PRN ×2 (11:45→11:51)
[2022-04-24] MEDS ORDERED: morphine SULFATE 4 MG/ML VIAL IVPUSH PRN (11:51)
[2022-04-24] MEDS ORDERED: LACTATED RINGERS SOLUTION 1,000 ML IV SCH (12:00)
[2022-04-24] MEDS: CARVEDILOL 25 MG TABLET (FP) PO SCH (14:26)
[2022-04-24] MEDS: ENOXAPARIN NA (PORCINE) 40 MG/0.4 ML DISP.SYRIN SQ SCH (14:27)
[2022-04-24] MEDS: ACETAMINOPHEN 500 MG TABLET (FP) PO SCH ×2 (14:28→21:35)
[2022-04-24] MEDS: POLYETHYLENE GLYCOL (HEALTHYLAX) 3350 17 GM PACKET PO SCH (18:32)
[2022-04-24] MEDS ORDERED: CEFAZOLIN 2 GM in DEXTROSE 5%-WATER - 50 ML IVPB SCH (19:00)
[2022-04-24] MEDS ORDERED: CEFAZOLIN 2 GM in DEXTROSE 5%-WATER 100 ML IVPB SCH (19:00)
[2022-04-24] MEDS: CARVEDILOL 12.5 MG TABLET (FP) PO SCH (21:36)
[2022-04-24] MEDS: DOCUSATE SODIUM 100 MG CAPSULE (FP) PO SCH (21:36)
[2022-04-24] MEDS: ATORVASTATIN CA 10 MG TABLET (FP) PO SCH (21:36)
[2022-04-24] MEDS ORDERED: CARVEDILOL 25 MG TABLET (FP) PO SCH (22:00)
[2022-04-24] MEDS ORDERED: PATIENT'S OWN MEDICATION (NON-FORMULARY) (Citalopram Hydrobromide [Citalopram Hbr] 40 MG) PO SCH (22:00)
[2022-04-24] MEDS: CEFAZOLIN SODIUM 2 GM in DEXTROSE 5%-WATER 100 ML IVPB SCH (22:05)
[2022-04-25] MEDS: ACETAMINOPHEN 500 MG TABLET (FP) PO SCH ×3 (00:20→19:54)
[2022-04-25] MEDS: CEFAZOLIN SODIUM 2 GM in DEXTROSE 5%-WATER 100 ML IVPB SCH ×2 (03:20→13:24)
[2022-04-25] MEDS: DOCUSATE SODIUM 100 MG CAPSULE (FP) PO SCH ×3 (06:04→22:04)
[2022-04-25] MEDS: oxyCODONE HCL 5 MG TABLET PO PRN ×4 (06:04→22:04)
[2022-04-25 07:29] LABS: CALCIUM 8.6 mg/dL (8.5-10.1)
[2022-04-25 07:30] LABS: BLOOD UREA NITROGEN 24.9 mg/dL (7-18)
[2022-04-25 07:33] LABS: CREATININE 1.2 mg/dL (0.55-1.3)
[2022-04-25] MEDS: CARVEDILOL 12.5 MG TABLET (FP) PO SCH ×2 (09:18→22:04)
[2022-04-25] MEDS: POLYETHYLENE GLYCOL (HEALTHYLAX) 3350 17 GM PACKET PO SCH (09:18)
[2022-04-25] MEDS: LOSARTAN POTASSIUM 50 MG TABLET PO SCH (09:22)
[2022-04-25] MEDS: ENOXAPARIN NA (PORCINE) 40 MG/0.4 ML DISP.SYRIN SQ SCH (09:22)
[2022-04-25] MEDS: ATORVASTATIN CA 10 MG TABLET (FP) PO SCH (22:04)
[2022-04-26] MEDS: ACETAMINOPHEN 500 MG TABLET (FP) PO SCH ×4 (01:00→20:25)
[2022-04-26] MEDS: DOCUSATE SODIUM 100 MG CAPSULE (FP) PO SCH ×3 (06:13→21:37)
[2022-04-26 08:22] LABS: CALCIUM 8.6 mg/dL (8.5-10.1)
[2022-04-26 08:29] LABS: CREATININE 0.9 mg/dL (0.55-1.3)
[2022-04-26] MEDS: oxyCODONE HCL 5 MG TABLET PO PRN ×3 (09:09→21:36)
[2022-04-26] MEDS: ENOXAPARIN NA (PORCINE) 40 MG/0.4 ML DISP.SYRIN SQ SCH (11:02)
[2022-04-26] MEDS: CARVEDILOL 12.5 MG TABLET (FP) PO SCH ×2 (11:02→21:37)
[2022-04-26] MEDS: POLYETHYLENE GLYCOL (HEALTHYLAX) 3350 17 GM PACKET PO SCH (11:02)
[2022-04-26] MEDS: LOSARTAN POTASSIUM 50 MG TABLET PO SCH (11:02)
[2022-04-26] MEDS: ATORVASTATIN CA 10 MG TABLET (FP) PO SCH (21:37)
[2022-04-27] MEDS: oxyCODONE HCL 5 MG TABLET PO PRN ×3 (01:16→21:36)
[2022-04-27] MEDS: ACETAMINOPHEN 500 MG TABLET (FP) PO SCH ×4 (01:16→12:37)
[2022-04-27] MEDS: DOCUSATE SODIUM 100 MG CAPSULE (FP) PO SCH ×3 (05:19→21:35)
[2022-04-27] MEDS: CARVEDILOL 12.5 MG TABLET (FP) PO SCH ×2 (09:35→21:35)
[2022-04-27] MEDS: LOSARTAN POTASSIUM 50 MG TABLET PO SCH (09:35)
[2022-04-27] MEDS: ZOLPIDEM TARTRATE 5 MG TABLET PO PRN ×2 (09:35→21:35)
[2022-04-27] MEDS: POLYETHYLENE GLYCOL (HEALTHYLAX) 3350 17 GM PACKET PO SCH (09:36)
[2022-04-27] MEDS: ENOXAPARIN NA (PORCINE) 40 MG/0.4 ML DISP.SYRIN SQ SCH (09:36)
[2022-04-27 19:32] LABS: PH,URINE 6.5 (5.0-8.0); URINE APPEARANCE CLEAR; URINE BILIRUBIN NEGATIVE (NEGATIVE); URINE COLOR YELLOW; URINE GLUCOSE (UA) NEGATIVE (NEGATIVE); URINE KETONE NEGATIVE (NEGATIVE); URINE LEUK ESTERASE NEGATIVE (NEGATIVE); URINE NITRITE NEGATIVE (NEGATIVE); URINE PROTEIN TRACE (NEGATIVE)
[2022-04-27] MEDS: ATORVASTATIN CA 10 MG TABLET (FP) PO SCH (21:36)
[2022-04-28] MEDS: DOCUSATE SODIUM 100 MG CAPSULE (FP) PO SCH ×3 (05:26→21:32)
[2022-04-28] MEDS: CARVEDILOL 12.5 MG TABLET (FP) PO SCH ×2 (09:58→21:32)
[2022-04-28] MEDS: LOSARTAN POTASSIUM 50 MG TABLET PO SCH (09:58)
[2022-04-28] MEDS: ENOXAPARIN NA (PORCINE) 40 MG/0.4 ML DISP.SYRIN SQ SCH (09:59)
[2022-04-28] MEDS: POLYETHYLENE GLYCOL (HEALTHYLAX) 3350 17 GM PACKET PO SCH (09:59)
[2022-04-28] MEDS: oxyCODONE HCL 5 MG TABLET PO PRN ×2 (18:46→21:47)
[2022-04-28] MEDS ORDERED: ACETAMINOPHEN 1000 MG/100 ML BAG IVPB ONE (20:50)
[2022-04-28] MEDS: ATORVASTATIN CA 10 MG TABLET (FP) PO SCH (21:32)
[2022-04-28] MEDS: ZOLPIDEM TARTRATE 5 MG TABLET PO PRN (21:32)
[2022-04-29] MEDS: oxyCODONE HCL 5 MG TABLET PO PRN ×3 (00:54→18:48)
[2022-04-29] MEDS: DOCUSATE SODIUM 100 MG CAPSULE (FP) PO SCH ×3 (05:39→21:32)
[2022-04-29] MEDS: POLYETHYLENE GLYCOL (HEALTHYLAX) 3350 17 GM PACKET PO SCH (10:33)
[2022-04-29] MEDS: CARVEDILOL 12.5 MG TABLET (FP) PO SCH ×2 (10:33→21:34)
[2022-04-29] MEDS: LOSARTAN POTASSIUM 50 MG TABLET PO SCH (10:33)
[2022-04-29] MEDS: ENOXAPARIN NA (PORCINE) 40 MG/0.4 ML DISP.SYRIN SQ SCH (10:33)
[2022-04-29] MEDS ORDERED: oxyCODONE HCL 5 MG TABLET PO ONE (20:54)
[2022-04-29] MEDS ORDERED: ACETAMINOPHEN 500 MG TABLET (FP) PO ONE (20:54)
[2022-04-29] MEDS: ATORVASTATIN CA 10 MG TABLET (FP) PO SCH (21:34)
[2022-04-29] MEDS ORDERED: ACETAMINOPHEN 1000 MG/100 ML BAG IVPB ONE (21:43)
[2022-04-30] MEDS: DOCUSATE SODIUM 100 MG CAPSULE (FP) PO SCH ×3 (05:09→21:06)
[2022-04-30] MEDS: oxyCODONE HCL 5 MG TABLET PO PRN ×3 (05:09→20:44)
[2022-04-30] MEDS: ENOXAPARIN NA (PORCINE) 40 MG/0.4 ML DISP.SYRIN SQ SCH (10:21)
[2022-04-30] MEDS: CARVEDILOL 12.5 MG TABLET (FP) PO SCH ×2 (10:22→21:06)
[2022-04-30] MEDS: LOSARTAN POTASSIUM 50 MG TABLET PO SCH (10:22)
[2022-04-30] MEDS: POLYETHYLENE GLYCOL (HEALTHYLAX) 3350 17 GM PACKET PO SCH (10:22)
[2022-04-30] MEDS: ATORVASTATIN CA 10 MG TABLET (FP) PO SCH (21:06)
[2022-05-01 01:42] LABS: BASO % 0.4 % (0-2.0); EOS % 3.6 % (0-4.5); HEMATOCRIT 34.7 % (32.4-45.2); HEMOGLOBIN 11.9 GM/dL (10.7-15.3); LYMPH % 28.9 % (8-40); MCH 31.4 pg (25.7-33.7); MCHC 34.3 g/dl (32.0-36.0); MEAN CELL VOLUME 91.4 fl (80-96); MEAN PLT VOLUME 9.1 fl (7.5-11.1); MONO % 8.9 % (3.8-10.2); NEUT % 58.2 % (42.8-82.8); PLATELET COUNT 254 10^3/uL (134-434); RBC 3.79 M/mm3 (3.60-5.2); RDW 12.9 % (11.6-15.6); WHITE BLOOD COUNT 7.5 K/mm3 (4.0-10.0)
[2022-05-01 01:57] LABS: CALCIUM 8.5 mg/dL (8.5-10.1)
[2022-05-01 01:58] LABS: BLOOD UREA NITROGEN 22.6 mg/dL (7-18); MAGNESIUM 1.9 mg/dL (1.8-2.4)
[2022-05-01 02:01] LABS: CREATININE 0.9 mg/dL (0.55-1.3)
[2022-05-01] MEDS: DOCUSATE SODIUM 100 MG CAPSULE (FP) PO SCH ×3 (07:45→21:54)
[2022-05-01] MEDS: LOSARTAN POTASSIUM 50 MG TABLET PO SCH (09:18)
[2022-05-01] MEDS: CARVEDILOL 12.5 MG TABLET (FP) PO SCH ×2 (09:18→21:54)
[2022-05-01] MEDS: POLYETHYLENE GLYCOL (HEALTHYLAX) 3350 17 GM PACKET PO SCH (09:18)
[2022-05-01] MEDS: ENOXAPARIN NA (PORCINE) 40 MG/0.4 ML DISP.SYRIN SQ SCH (09:18)
[2022-05-01 10:09] LABS: BASO % 0.5 % (0-2.0); EOS % 3.7 % (0-4.5); HEMATOCRIT 36.7 % (32.4-45.2); HEMOGLOBIN 12.5 GM/dL (10.7-15.3); LYMPH % 18.6 % (8-40); MCH 31.4 pg (25.7-33.7); MEAN CELL VOLUME 92.3 fl (80-96); MEAN PLT VOLUME 7.9 fl (7.5-11.1); MONO % 6.7 % (3.8-10.2); NEUT % 70.5 % (42.8-82.8); PLATELET COUNT 261 10^3/uL (134-434); RBC 3.97 M/mm3 (3.60-5.2); RDW 13.2 % (11.6-15.6); WHITE BLOOD COUNT 6.2 K/mm3 (4.0-10.0)
[2022-05-01 10:29] LABS: CALCIUM 8.9 mg/dL (8.5-10.1)
[2022-05-01 10:30] LABS: ALBUMIN 2.7 g/dl (3.4-5.0)
[2022-05-01 10:34] LABS: BILIRUBIN,TOTAL 0.5 mg/dL (0.2-1); TOT PROT 6.5 g/dl (6.4-8.2)
[2022-05-01] MEDS ORDERED: ENOXAPARIN NA (PORCINE) 80 MG/0.8 ML DISP.SYRIN SQ ONE (16:10)
[2022-05-01] MEDS: oxyCODONE HCL 5 MG TABLET PO PRN (19:45)
[2022-05-01] MEDS: ATORVASTATIN CA 10 MG TABLET (FP) PO SCH (21:54)
[2022-05-02] MEDS: DOCUSATE SODIUM 100 MG CAPSULE (FP) PO SCH ×3 (06:26→21:02)
[2022-05-02 07:24] LABS: ALBUMIN 2.5 g/dl (3.4-5.0); BLOOD UREA NITROGEN 19.6 mg/dL (7-18); CALCIUM 8.6 mg/dL (8.5-10.1)
[2022-05-02 07:27] LABS: CREATININE 0.9 mg/dL (0.55-1.3)
[2022-05-02 07:29] LABS: BILIRUBIN,TOTAL 0.4 mg/dL (0.2-1); TOT PROT 6.1 g/dl (6.4-8.2)
[2022-05-02] MEDS: LOSARTAN POTASSIUM 50 MG TABLET PO SCH ×2 (08:07→11:25)
[2022-05-02] MEDS: CARVEDILOL 12.5 MG TABLET (FP) PO SCH ×3 (08:07→21:01)
[2022-05-02] MEDS ORDERED: REGADENOSON 0.4 MG/5 ML PRE-FILLED SYRINGE IVPUSH ONE ×2 (10:45→11:15)
[2022-05-02] MEDS: POLYETHYLENE GLYCOL (HEALTHYLAX) 3350 17 GM PACKET PO SCH (11:25)
[2022-05-02] MEDS: oxyCODONE HCL 5 MG TABLET PO PRN ×2 (18:34→23:43)
[2022-05-02] MEDS: ATORVASTATIN CA 10 MG TABLET (FP) PO SCH (21:01)
[2022-05-03] MEDS: DOCUSATE SODIUM 100 MG CAPSULE (FP) PO SCH (05:49)
[2022-05-03] MEDS: oxyCODONE HCL 5 MG TABLET PO PRN (06:41)
[2022-05-03] MEDS: LOSARTAN POTASSIUM 50 MG TABLET PO SCH ×2 (10:09→10:10)
[2022-05-03] MEDS: POLYETHYLENE GLYCOL (HEALTHYLAX) 3350 17 GM PACKET PO SCH (10:12)
[2022-05-03] MEDS: CARVEDILOL 12.5 MG TABLET (FP) PO SCH (10:48)
[2022-05-03 12:58] VITALS: BP 129/89; PULSE 61; TEMP 97.9
== END 2022-05-03 13:20 | DRG 493 ==
LOC: JER 12:10 → JERBED 16:06 → J4W 04-23 19:16 → J4S 05-02 16:47
PROVIDERS: ADMIT Family Medicine; ATTEND Family Medicine
PROC: 0QSH04Z Reposition Left Tibia with Internal Fixation Device, Open Approach (ICD-10-PCS; 2022-04-24)
PROC: 0QSK04Z Reposition Left Fibula with Internal Fixation Device, Open Approach (ICD-10-PCS; principal; 2022-04-24 09:15)
DX: S82.842A Displaced bimalleolar fracture of left lower leg, initial encounter for closed fracture (principal); N17.9 Acute kidney failure, unspecified; J98.11 Atelectasis; I47.1 Supraventricular tachycardia; I10 Essential (primary) hypertension; E78.5 Hyperlipidemia, unspecified; E11.9 Type 2 diabetes mellitus without complications; W19.XXXA Unspecified fall, initial encounter; Y93.89 Activity, other specified; Y92.89 Other specified places as the place of occurrence of the external cause; Y99.8 Other external cause status; S00.03XA Contusion of scalp, initial encounter; E86.0 Dehydration; R00.1 Bradycardia, unspecified; R82.71 Bacteriuria; R55 Syncope and collapse
CPT/HCPCS: 36415; 71045-TC-FY; 71275-TC; 73590-TC-LT-FY; 73610-TC-LT-FY; 73630-TC-LT; 76000-TC-FY; 78452-TC; 80048; 80053; 80061; 81003; 82570; 83036; 83735; 84156; 84443; 84484; 85025; 85379; 85610; 85730; 86850; 86900; 86901; 87086; 87186; 93005; 93010; 93017; 93306-TC; 94010; 94760; 97116-GP; 97162-GP; 99285-25; A9502; C9803-CS; J2785; Q9967; U0003; U0005

== ENCOUNTER 2024-01-27 14:52 | Emergency (ER) | payer BC ==
[2024-01-27 15:07] VITALS: BP 188/83; PULSE 64; RESP 18; TEMP 98.7; BMI 27.3
[2024-01-27 16:05] LABS: BASO % 0.8 % (0-2.0); EOS % 4.2 % (0-4.5); HEMATOCRIT 40.3 % (32.4-45.2); HEMOGLOBIN 13.7 GM/dL (10.7-15.3); MCH 31.5 pg (25.7-33.7); MCHC 33.9 g/dl (32.0-36.0); MEAN CELL VOLUME 92.9 fl (80-96); MEAN PLT VOLUME 9.1 fl (7.5-11.1); MONO % 5.1 % (3.8-10.2); NEUT % 64.9 % (42.8-82.8); PLATELET COUNT 227 10^3/uL (134-434); RBC 4.34 M/mm3 (3.60-5.2); RDW 14.2 % (11.6-15.6); WHITE BLOOD COUNT 9.3 K/mm3 (4.0-10.0)
[2024-01-27 16:35] LABS: POTASSIUM 4.1 mmol/L (3.5-5.1)
[2024-01-27 16:36] LABS: BLOOD UREA NITROGEN 24.4 mg/dL (7-18)
[2024-01-27 16:39] LABS: CREATININE 1.2 mg/dL (0.55-1.3)
== END 2024-01-27 16:13 | disposition home or self-care (01) ==
LOC: JERFT 14:52
DX: R20.2 Paresthesia of skin (principal); B00.1 Herpesviral vesicular dermatitis
CPT/HCPCS: 36415; 80048; 85025; 86695; 86696; 99283-25

== ENCOUNTER 2024-03-30 09:45 | Emergency (ER) | payer BC ==
[2024-03-30 10:01] VITALS: RESP 18
[2024-03-30] MEDS ORDERED: KETOROLAC TROMETHAMINE 30 MG/1 ML VIAL ONE (10:22)
[2024-03-30] MEDS: KETOROLAC TROMETHAMINE 30 MG/1 ML VIAL IM ONE (10:26)
[2024-03-30 12:52] VITALS: BP 176/74; PULSE 51; TEMP 97.7
== END 2024-03-30 12:58 | disposition home or self-care (01) ==
LOC: JER 09:45
PROC: 3E0233Z Introduction of Anti-inflammatory into Muscle, Percutaneous Approach (ICD-10-PCS; principal; 2024-03-30)
DX: M25.561 Pain in right knee (principal); W18.39XA Other fall on same level, initial encounter; Y93.01 Activity, walking, marching and hiking
CPT/HCPCS: 73562-TC-RT-FY; 73590-TC-RT-FY; 99284-25

== ENCOUNTER 2024-07-03 12:04 | Emergency (ER) | payer BC ==
[2024-07-03 12:10] VITALS: BP 189/92; PULSE 60; RESP 18; TEMP 97.7; BMI 30.9
== END 2024-07-03 12:54 | disposition home or self-care (01) ==
LOC: JERFT 12:04
DX: N61.1 Abscess of the breast and nipple (principal); N64.4 Mastodynia
CPT/HCPCS: 99283-25

== ENCOUNTER 2024-07-28 13:35 | Emergency (ER) | payer BC ==
[2024-07-28 13:43] VITALS: BP 159/67; PULSE 52; RESP 18; TEMP 98.3; BMI 28.3
[2024-07-28] MEDS ORDERED: ACETAMINOPHEN 325 MG TABLET (FP) ONE ×2 (15:02→16:12)
[2024-07-28] MEDS: ACETAMINOPHEN 325 MG TABLET (FP) PO ONE (16:13)
[2024-07-28 18:02] LABS: BASO % 0.9 % (0-2.0); EOS % 4.1 % (0-4.5); HEMATOCRIT 41.9 % (32.4-45.2); HEMOGLOBIN 14.2 GM/dL (10.7-15.3); LYMPH % 29.3 % (8-40); MCH 31.9 pg (25.7-33.7); MCHC 33.8 g/dl (32.0-36.0); MEAN CELL VOLUME 94.2 fl (80-96); MEAN PLT VOLUME 9.3 fl (7.5-11.1); MONO % 5.4 % (3.8-10.2); NEUT % 60.3 % (42.8-82.8); PLATELET COUNT 251 10^3/uL (134-434); RBC 4.45 M/mm3 (3.60-5.2); RDW 14.8 % (11.6-15.6); WHITE BLOOD COUNT 9.5 K/mm3 (4.0-10.0)
[2024-07-28 18:41] LABS: ERYTHROCYTE SEDIMENTATION RATE 16 mm/hr (0-30)
[2024-07-28 20:12] LABS: POTASSIUM 4.4 mmol/L (3.5-5.1)
[2024-07-28 20:14] LABS: ALBUMIN 3.5 g/dl (3.4-5.0); BLOOD UREA NITROGEN 28.4 mg/dL (7-18); CALCIUM 9.2 mg/dL (8.5-10.1)
[2024-07-28 20:17] LABS: CREATININE 1.3 mg/dL (0.55-1.3)
[2024-07-28 20:19] LABS: BILIRUBIN,TOTAL 0.6 mg/dL (0.2-1); TOT PROT 7.4 g/dl (6.4-8.2)
== END 2024-07-28 21:23 | disposition home or self-care (01) ==
LOC: JER 13:35
DX: M79.89 Other specified soft tissue disorders (principal); M79.605 Pain in left leg
CPT/HCPCS: 36415; 73590-TC-LT-FY; 73610-TC-LT-FY; 73630-TC-LT; 80053; 85025; 85651; 86140; 87040; 93971-TC; 99285-25